=== PATIENT | female | born 1955 | race Caucasian/White ===

== ENCOUNTER 2020-11-07 07:14 | Inpatient (IN) | payer MEDICARE, MEDICAID ==
[~2020-11-07] VITALS: Ht 157.5 cm; Wt 85.0 kg
[2020-11-07] MEDS ORDERED: dexamethasone sod phosphate 10mg/ml inj IV STA (08:18)
[2020-11-07 09:57] LABS: BASOPHILS % (AUTO) 0.1 % (0-1); EOSINOPHILS % (AUTO) 0.4 % (0-6); HEMATOCRIT 43.6 % (35.0-45.0); HEMOGLOBIN 14.5 g/dl (12.0-16.0); LYMPHOCYTES # (AUTO) 0.7 X10'3 (1.1-4.8); LYMPHOCYTES % (AUTO) 15.5 % (21-51); MEAN CORPUSCULAR HEMOGLOBIN 27.8 PG (27.0-31.0); MEAN CORPUSCULAR HGB CONC 33.3 g/dL (33.0-36.5); MEAN CORPUSCULAR VOLUME 83.7 FL (78-98); MONOCYTES # (AUTO) 0.4 X10'3 (0-0.9); MONOCYTES % (AUTO) 7.9 % (2-12); NEUTROPHILS # (AUTO) 3.5 X10'3 (1.8-7.7); NEUTROPHILS % (AUTO) 76.1 % (42-75); PLATELET COUNT 252 X10'3 (140-440); RED BLOOD COUNT 5.21 X10'6 (4.20-5.60); RED CELL DISTRIBUTION WIDTH 15.2 % (11.5-14.5); WHITE BLOOD COUNT 4.7 X10'3 (4.5-11.0)
[2020-11-07 10:05] LABS: ALANINE AMINOTRANSFERASE 38 U/L (12-78); ALBUMIN 2.6 G/DL (3.4-5.0); ALBUMIN/GLOBULIN RATIO 0.5 (1.1-1.5); ALKALINE PHOSPHATASE 103 IU/L (46-116); ANION GAP 10 (8-16); ASPARTATE AMINO TRANSFERASE 45 U/L (10-37); BILIRUBIN,TOTAL 0.6 MG/DL (0.1-1.0); BLOOD UREA NITROGEN 14 MG/DL (7-18); BUN/CREATININE RATIO 20.6 (6.6-38.0); CALCIUM 8.7 MG/DL (8.5-10.1); CHLORIDE 103 MMOL/L (99-107); CREATININE 0.68 MG/DL (0.40-0.90); GLUCOSE 181 MG/DL (70-104); POTASSIUM 4.1 MMOL/L (3.5-5.1); SODIUM 140 MMOL/L (135-145); TOTAL CARBON DIOXIDE 26.7 MMOL/L (24-32); TOTAL PROTEIN 7.7 G/DL (6.4-8.2); eGFR 86 ML/MIN
[2020-11-07 10:14] LABS: C-REACTIVE PROTEIN 12.36 MG/DL (0.0-0.5)
[2020-11-07] MEDS ORDERED: ondansetron/PF 4mg/2ml inj IV PRN (12:05)
[2020-11-07] MEDS ORDERED: magnesium 4gm in 100ml NS 100 ML IV PRN (12:05)
[2020-11-07] MEDS ORDERED: HYDROcodone/acetaminophen 5mg/325mg tablet PO PRN (12:05)
[2020-11-07] MEDS ORDERED: magnesium 2GM in 50ml NS 50 ML IV PRN (12:05)
[2020-11-07] MEDS ORDERED: MESSAGE TO PHARMACY PO ONE (12:05)
[2020-11-07] MEDS ORDERED: glucagon, human recombinant 1mg kit SUBCUT PRN (12:05)
[2020-11-07] MEDS ORDERED: potassium Cl 40MEQ/1/2NS 520ml 520 ML IV PRN ×2 (12:05)
[2020-11-07] MEDS ORDERED: dextrose ORAL solution 15 GM/59 ML bottle PO PRN ×2 (12:05)
[2020-11-07] MEDS ORDERED: morphine 2 MG/ML inj. syringe IV PRN (12:05)
[2020-11-07] MEDS ORDERED: magnesium Cl slow-release 64mg tablet PO PRN (12:05)
[2020-11-07] MEDS ORDERED: mag hydrox/Alum hydrox/simeth 30ml oral suspension PO PRN (12:05)
[2020-11-07] MEDS ORDERED: potassium Cl 20 mEq SR tablet PO PRN ×2 (12:05)
[2020-11-07] MEDS ORDERED: dextrose 50%-water 50ml dispensing syringe IV PRN ×2 (12:05)
[2020-11-07] MEDS ORDERED: acetaminophen 325mg tablet PO PRN (12:05)
--- NOTE | 2020-11-07 12:56 | NUR ---
Blood cultures drawn by rn labor and delivery.
[2020-11-07 13:22] LABS: HEMOGLOBIN A1C 7.9 % (4.5-6.2)
[2020-11-07] MEDS: CefTRIAXone 2gm/D5W 50ml BAG 50 ML IV SCH (14:27)
[2020-11-07 14:47] LABS: LACTATE DEHYDROGENASE 568 U/L (81-234)
--- NOTE | 2020-11-07 14:55 | NUR ---
PERICO DARBY ([facility]) [phone]
[2020-11-07] MEDS: lisinopril 20mg tablet PO SCH (15:09)
[2020-11-07 15:14] LABS: D-DIMER 0.83 MG/L FEU (0-0.50)
[2020-11-07] MEDS ORDERED: heparin, porcine 5000 units/ml vial SQ SCH (16:00)
[2020-11-07] MEDS ORDERED: dexamethasone 4mg/ml inj IV SCH (20:00)
[2020-11-07] MEDS: K and/or MAG REPLACEMENT MC SCH (20:00)
[2020-11-07] MEDS: dexamethasone 6 MG in NS 50ml IV soln IV SCH (20:23)
--- NOTE | 2020-11-07 20:27 | NUR ---
PT CONSUMED 31 G CARBS FOR DINNER
--- NOTE | 2020-11-07 21:02 | NUR ---
PHONED PHARMACY ABOUT LANTUS . PHARM STATED THAT IT WAS READY TO BE PICKED UP - THIS RECORDER TO PHARM TO GET LANTUS
[2020-11-07] MEDS: insulin Lispro (HumaLOG) vial - multi-dose SQ SCH (21:19)
[2020-11-07] MEDS: insulin glargine (Lantus) pen - multi-dose SQ SCH (21:28)
[2020-11-08] MEDS ORDERED: enoxaparin 60mg/0.6ml syringe SUBCUT ONE (01:50)
--- NOTE | 2020-11-08 03:26 | NUR ---
Tc perera in ED - 11/08/20 at 0327 by ISABELLA THALIA HOSPITALIST ABOUT BP AT 1791
--- NOTE | 2020-11-08 03:27 | NUR ---
PAGGED HOSPITALIST KATRINA ABOUT BP AT 179/ 92 . PT BP AT WAS 148/95 WILL CONTINUE TO MONITOR AND REASSESS.
[2020-11-08 04:04] LABS: BASOPHILS % (AUTO) 0.2 % (0-1); EOSINOPHILS % (AUTO) 0 % (0-6); HEMATOCRIT 45.6 % (35.0-45.0); HEMOGLOBIN 15.2 g/dl (12.0-16.0); LYMPHOCYTES % (AUTO) 22.2 % (21-51); MEAN CORPUSCULAR HEMOGLOBIN 27.8 PG (27.0-31.0); MEAN CORPUSCULAR HGB CONC 33.2 g/dL (33.0-36.5); MEAN CORPUSCULAR VOLUME 83.7 FL (78-98); MEAN PLATELET VOLUME 8.5 FL (7.4-10.4); MONOCYTES # (AUTO) 0.4 X10'3 (0-0.9); MONOCYTES % (AUTO) 9.4 % (2-12); NEUTROPHILS % (AUTO) 68.2 % (42-75); PLATELET COUNT 314 X10'3 (140-440); RED BLOOD COUNT 5.45 X10'6 (4.20-5.60); RED CELL DISTRIBUTION WIDTH 14.7 % (11.5-14.5); WHITE BLOOD COUNT 4.4 X10'3 (4.5-11.0)
[2020-11-08 04:05] LABS: CLARITY,URINE CLEAR (Clear); COLOR,URINE YELLOW (Yellow); GLUCOSE, URINE 500 mg/dl (Neg); KETONES,URINE 15 mg/dl (Neg); LEUKOCYTE ESTERASE ,URINE NEGATIVE (Neg); NITRITES, URINE NEGATIVE (Neg); OCCULT BLOOD,URINE NEGATIVE (Neg); PROTEIN,URINE >=300 mg/dl (Neg)
[2020-11-08 04:07] LABS: UA COLLECTION TYPE CLN CATCH MIDSTREAM
[2020-11-08 04:19] LABS: ALANINE AMINOTRANSFERASE 40 U/L (12-78); ALBUMIN 2.5 G/DL (3.4-5.0); ALBUMIN/GLOBULIN RATIO 0.4 (1.1-1.5); ALKALINE PHOSPHATASE 111 IU/L (46-116); AMORPHOUS URATES 1+; ANION GAP 11 (8-16); ASPARTATE AMINO TRANSFERASE 34 U/L (10-37); BACTERIA,URINE NONE SEEN /HPF (Neg); BILIRUBIN,TOTAL 0.5 MG/DL (0.1-1.0); BLOOD UREA NITROGEN 24 MG/DL (7-18); BUN/CREATININE RATIO 28.6 (6.6-38.0); CHLORIDE 105 MMOL/L (99-107); CHOL/HDL RATIO 5.3 (0.00-4.99); CHOLESTEROL 244 MG/DL (0-200); CREATININE 0.84 MG/DL (0.40-0.90); GLUCOSE 216 MG/DL (70-104); HDL CHOLESTEROL 46 MG/DL (35-60); LDL CHOLESTEROL 165 MG/DL (50-100); MAGNESIUM 2.5 MG/DL (1.5-2.4); MUCUS STRANDS NONE SEEN /LPF (Neg); POTASSIUM 4.3 MMOL/L (3.5-5.1); RBC,URINE 0-2 /HPF (0-2); SODIUM 142 MMOL/L (135-145); SQUAMOUS EPITHELIAL CELL,UR MODERATE /LPF (FEW); TOTAL CARBON DIOXIDE 26.1 MMOL/L (24-32); TOTAL PROTEIN 8.1 G/DL (6.4-8.2); TRIGLYCERIDES 166 MG/DL (20-135); WBC,URINE 0-4 /HPF (0-4); eGFR 68 ML/MIN
[2020-11-08] MEDS: enoxaparin 60mg/0.6ml syringe SUBCUT SCH ×2 (04:43→15:12)
[2020-11-08] MEDS ORDERED: amLODIPine 5mg tablet PO SCH (08:00)
[2020-11-08] MEDS ORDERED: enoxaparin 100mg/ml syringe SUBCUT ONE (08:00)
[2020-11-08] MEDS: K and/or MAG REPLACEMENT MC SCH ×2 (08:00→20:00)
[2020-11-08] MEDS: lisinopril 20mg tablet PO SCH (11:08)
[2020-11-08] MEDS: dexamethasone 6 MG in NS 50ml IV soln IV SCH ×2 (11:08→20:13)
[2020-11-08] MEDS: CefTRIAXone 2gm/D5W 50ml BAG 50 ML IV SCH (11:09)
[2020-11-08] MEDS: insulin Lispro (HumaLOG) vial - multi-dose SQ SCH ×2 (11:19→20:19)
[2020-11-08] MEDS ORDERED: REMDESIVIR INJ 200 MG in normal saline 100ml IV soln 60 ML IV ONE (14:30)
[2020-11-08] MEDS: acetaminophen 325mg tablet PO PRN (14:44)
[2020-11-08] MEDS ORDERED: amLODIPine 5mg tablet PO ONE (19:15)
[2020-11-08] MEDS: insulin glargine (Lantus) pen - multi-dose SQ SCH (20:21)
[2020-11-09] MEDS: K and/or MAG REPLACEMENT MC SCH ×2 (07:42→19:49)
[2020-11-09] MEDS: amLODIPine 5mg tablet PO SCH (08:00)
[2020-11-09] MEDS: atorvastatin 20mg tablet PO SCH (08:48)
[2020-11-09] MEDS: lisinopril 20mg tablet PO SCH (08:49)
[2020-11-09] MEDS: dexamethasone 6 MG in NS 50ml IV soln IV SCH ×2 (08:49→19:55)
[2020-11-09] MEDS: CefTRIAXone 2gm/D5W 50ml BAG 50 ML IV SCH (09:28)
[2020-11-09] MEDS: REMDESIVIR INJ 100 MG in normal saline 100ml IV soln 80 ML IV SCH (09:54)
[2020-11-09 10:04] LABS: BASOPHILS % (AUTO) 0.1 % (0-1); EOSINOPHILS % (AUTO) 0 % (0-6); LYMPHOCYTES # (AUTO) 1.4 X10'3 (1.1-4.8); LYMPHOCYTES % (AUTO) 16.3 % (21-51); MEAN CORPUSCULAR HEMOGLOBIN 27.9 PG (27.0-31.0); MEAN CORPUSCULAR HGB CONC 33.2 g/dL (33.0-36.5); MEAN CORPUSCULAR VOLUME 83.9 FL (78-98); MONOCYTES # (AUTO) 0.6 X10'3 (0-0.9); MONOCYTES % (AUTO) 7.2 % (2-12); NEUTROPHILS # (AUTO) 6.7 X10'3 (1.8-7.7); NEUTROPHILS % (AUTO) 76.4 % (42-75); PLATELET COUNT 311 X10'3 (140-440); RED BLOOD COUNT 5.01 X10'6 (4.20-5.60); RED CELL DISTRIBUTION WIDTH 14.5 % (11.5-14.5); WHITE BLOOD COUNT 8.7 X10'3 (4.5-11.0)
[2020-11-09 10:15] LABS: D-DIMER 0.45 MG/L FEU (0-0.50)
[2020-11-09 10:26] LABS: ALANINE AMINOTRANSFERASE 48 U/L (12-78); ALBUMIN 2.4 G/DL (3.4-5.0); ALBUMIN/GLOBULIN RATIO 0.5 (1.1-1.5); ALKALINE PHOSPHATASE 93 IU/L (46-116); ANION GAP 12 (8-16); ASPARTATE AMINO TRANSFERASE 35 U/L (10-37); BILIRUBIN,TOTAL 0.4 MG/DL (0.1-1.0); BLOOD UREA NITROGEN 26 MG/DL (7-18); BUN/CREATININE RATIO 34.7 (6.6-38.0); C-REACTIVE PROTEIN 2.28 MG/DL (0.0-0.5); CALCIUM 8.7 MG/DL (8.5-10.1); CHLORIDE 106 MMOL/L (99-107); CREATININE 0.75 MG/DL (0.40-0.90); GLUCOSE 248 MG/DL (70-104); MAGNESIUM 2.2 MG/DL (1.5-2.4); SODIUM 142 MMOL/L (135-145); TOTAL CARBON DIOXIDE 23.7 MMOL/L (24-32); TOTAL PROTEIN 7.2 G/DL (6.4-8.2); eGFR 77 ML/MIN
[2020-11-09 11:00] LABS: LACTATE DEHYDROGENASE 341 U/L (81-234)
[2020-11-09] MEDS: enoxaparin 60mg/0.6ml syringe SUBCUT SCH ×2 (11:18→21:34)
[2020-11-09] MEDS: insulin Lispro (HumaLOG) vial - multi-dose SQ SCH ×2 (14:04→19:52)
[2020-11-09] MEDS ORDERED: SIMV-45 PO (16:09)
[2020-11-09] MEDS ORDERED: BENA1TAB19 PO (16:09)
[2020-11-09] MEDS ORDERED: AMLO10TA13 PO (16:09)
--- NOTE | 2020-11-09 16:17 | NUR ---
received report from sean morrow in er
--- NOTE | 2020-11-09 18:26 | NUR ---
GAVE REPORT TO REINA WINSTON
--- NOTE | 2020-11-09 18:38 | NUR ---
Patient in room ORTHO 4023. I have received report from Archana HUANG and had the opportunity to ask questions and assume patient care. Addendum: 11/09/20 at 1838 by Becky Cano RN Received report from Sonia HUANG
[2020-11-09] MEDS: lactobacillus rhamnosus 10,000 MMU CELLS/CAPSULE PO SCH (19:55)
[2020-11-09 20:00] VITALS: BP 150/72
[2020-11-09] MEDS: insulin glargine (Lantus) pen - multi-dose SQ SCH (21:36)
[2020-11-09 22:00] VITALS: BP 158/82
--- NOTE | 2020-11-10 00:22 | NUR ---
Problems reprioritized. Patient report given, questions answered & plan of care reviewed with Nicky HUANG.
--- NOTE | 2020-11-10 00:30 | NUR ---
Assumed care of pt at this time report from Becky HUANG.
[2020-11-10 02:00] VITALS: BP 154/86
--- NOTE | 2020-11-10 06:20 | NUR ---
Report to Lakisha Christianson.
[2020-11-10 06:31] VITALS: BP 154/84
--- NOTE | 2020-11-10 06:31 | NUR ---
Patient in room ORTHO 4023. I have received report from Nicky HUANG and had the opportunity to ask questions and assume patient care.
[2020-11-10 07:57] LABS: BASOPHILS % (AUTO) 0.1 % (0-1); EOSINOPHILS % (AUTO) 0 % (0-6); HEMATOCRIT 43.3 % (35.0-45.0); HEMOGLOBIN 14.3 g/dl (12.0-16.0); LYMPHOCYTES # (AUTO) 1.5 X10'3 (1.1-4.8); LYMPHOCYTES % (AUTO) 16.8 % (21-51); MEAN CORPUSCULAR HEMOGLOBIN 27.6 PG (27.0-31.0); MEAN CORPUSCULAR VOLUME 83.5 FL (78-98); MEAN PLATELET VOLUME 8.3 FL (7.4-10.4); MONOCYTES # (AUTO) 0.7 X10'3 (0-0.9); MONOCYTES % (AUTO) 7.3 % (2-12); NEUTROPHILS # (AUTO) 6.9 X10'3 (1.8-7.7); NEUTROPHILS % (AUTO) 75.8 % (42-75); PLATELET COUNT 380 X10'3 (140-440); RED BLOOD COUNT 5.18 X10'6 (4.20-5.60); RED CELL DISTRIBUTION WIDTH 14.9 % (11.5-14.5); WHITE BLOOD COUNT 9.1 X10'3 (4.5-11.0)
[2020-11-10] MEDS: K and/or MAG REPLACEMENT MC SCH ×2 (08:00→19:17)
[2020-11-10] MEDS: dexamethasone 6 MG in NS 50ml IV soln IV SCH ×2 (08:02→19:06)
[2020-11-10] MEDS: lisinopril 20mg tablet PO SCH (08:03)
[2020-11-10] MEDS: REMDESIVIR INJ 100 MG in normal saline 100ml IV soln 80 ML IV SCH (08:03)
[2020-11-10] MEDS: atorvastatin 20mg tablet PO SCH (08:03)
[2020-11-10] MEDS: CefTRIAXone 2gm/D5W 50ml BAG 50 ML IV SCH (08:03)
[2020-11-10] MEDS: amLODIPine 5mg tablet PO SCH (08:04)
[2020-11-10] MEDS: lactobacillus rhamnosus 10,000 MMU CELLS/CAPSULE PO SCH ×2 (08:04→19:06)
[2020-11-10 08:17] LABS: ALANINE AMINOTRANSFERASE 50 U/L (12-78); ALBUMIN 2.6 G/DL (3.4-5.0); ALBUMIN/GLOBULIN RATIO 0.6 (1.1-1.5); ALKALINE PHOSPHATASE 88 IU/L (46-116); ANION GAP 12 (8-16); ASPARTATE AMINO TRANSFERASE 24 U/L (10-37); BILIRUBIN,TOTAL 0.5 MG/DL (0.1-1.0); BLOOD UREA NITROGEN 30 MG/DL (7-18); BUN/CREATININE RATIO 37.5 (6.6-38.0); C-REACTIVE PROTEIN 1.11 MG/DL (0.0-0.5); CALCIUM 8.7 MG/DL (8.5-10.1); CHLORIDE 107 MMOL/L (99-107); GLUCOSE 190 MG/DL (70-104); LACTATE DEHYDROGENASE 325 U/L (81-234); MAGNESIUM 2.4 MG/DL (1.5-2.4); POTASSIUM 4.5 MMOL/L (3.5-5.1); SODIUM 142 MMOL/L (135-145); TOTAL CARBON DIOXIDE 23.5 MMOL/L (24-32); eGFR 72 ML/MIN
[2020-11-10 08:30] LABS: D-DIMER 0.32 MG/L FEU (0-0.50)
--- NOTE | 2020-11-10 09:08 | NUR ---
Pt with T2DM, current A1c is 7.9%. Pt admit for acute respiratory failure secondary COVID-19 PNA. Pt would benefit from DM education once stable. Will continue to follow. Addendum: 11/10/20 at [address] Amended: Links added.
[2020-11-10] MEDS: insulin Lispro (HumaLOG) vial - multi-dose SQ SCH ×3 (09:29→18:59)
[2020-11-10 11:36] VITALS: BP 130/70
[2020-11-10] MEDS: enoxaparin 60mg/0.6ml syringe SUBCUT SCH ×2 (11:41→22:09)
--- NOTE | 2020-11-10 15:46 | NUR ---
PAGER ID: [phone] MESSAGE: [id number], Fiorella, Blood pressure os 170/77 pulse of 74. got lisinopril and Norvasc this AM, has no PRNs. Lakisha [phone]
[2020-11-10 15:49] VITALS: BP 170/77
--- NOTE | 2020-11-10 17:48 | NUR ---
Per MD patient does not need any more antihypertensive medications at this time.
--- NOTE | 2020-11-10 18:29 | NUR ---
Problems reprioritized. Patient report given, questions answered & plan of care reviewed with Jacquie HUANG and Tammy HUANG.
[2020-11-10 18:32] VITALS: BP 155/81
[2020-11-10 22:00] VITALS: BP 140/75
[2020-11-10] MEDS: acetaminophen 325mg tablet PO PRN (22:08)
[2020-11-10] MEDS: insulin glargine (Lantus) pen - multi-dose SQ SCH (22:15)
--- NOTE | 2020-11-10 23:00 | NUR ---
pt up to BR with 1 person assist. c/o headache - tylenol helped.
[2020-11-11 01:26] VITALS: BP 144/74
--- NOTE | 2020-11-11 06:13 | NUR ---
Problems reprioritized. Patient report given, questions answered & plan of care reviewed with REINA Banuelos.
--- NOTE | 2020-11-11 06:19 | NUR ---
Patient in room ORTHO 4023. I have received report from Tammy HUANG and Jacquie HUANG and had the opportunity to ask questions and assume patient care.
[2020-11-11 06:21] VITALS: BP 141/65
[2020-11-11] MEDS: REMDESIVIR INJ 100 MG in normal saline 100ml IV soln 80 ML IV SCH (08:00)
[2020-11-11] MEDS: lactobacillus rhamnosus 10,000 MMU CELLS/CAPSULE PO SCH ×2 (08:00→20:42)
[2020-11-11] MEDS: K and/or MAG REPLACEMENT MC SCH ×2 (08:00→20:00)
[2020-11-11] MEDS: atorvastatin 20mg tablet PO SCH (08:00)
[2020-11-11] MEDS: dexamethasone 6 MG in NS 50ml IV soln IV SCH ×2 (08:01→20:42)
[2020-11-11] MEDS: amLODIPine 5mg tablet PO SCH (08:01)
[2020-11-11] MEDS: lisinopril 20mg tablet PO SCH (08:01)
[2020-11-11 08:28] LABS: BASOPHILS % (AUTO) 0.4 % (0-1); EOSINOPHILS % (AUTO) 0 % (0-6); HEMATOCRIT 44.8 % (35.0-45.0); HEMOGLOBIN 14.7 g/dl (12.0-16.0); LYMPHOCYTES # (AUTO) 2.1 X10'3 (1.1-4.8); LYMPHOCYTES % (AUTO) 18.2 % (21-51); MEAN CORPUSCULAR HEMOGLOBIN 27.5 PG (27.0-31.0); MEAN CORPUSCULAR HGB CONC 32.9 g/dL (33.0-36.5); MEAN CORPUSCULAR VOLUME 83.7 FL (78-98); MEAN PLATELET VOLUME 8.4 FL (7.4-10.4); MONOCYTES # (AUTO) 0.7 X10'3 (0-0.9); MONOCYTES % (AUTO) 6.3 % (2-12); NEUTROPHILS # (AUTO) 8.7 X10'3 (1.8-7.7); NEUTROPHILS % (AUTO) 75.1 % (42-75); PLATELET COUNT 402 X10'3 (140-440); RED BLOOD COUNT 5.35 X10'6 (4.20-5.60); RED CELL DISTRIBUTION WIDTH 14.9 % (11.5-14.5); WHITE BLOOD COUNT 11.6 X10'3 (4.5-11.0)
[2020-11-11 08:51] LABS: ALANINE AMINOTRANSFERASE 83 U/L (12-78); ALBUMIN 2.7 G/DL (3.4-5.0); ALBUMIN/GLOBULIN RATIO 0.6 (1.1-1.5); ALKALINE PHOSPHATASE 84 IU/L (46-116); ANION GAP 11 (8-16); ASPARTATE AMINO TRANSFERASE 52 U/L (10-37); BILIRUBIN,TOTAL 0.4 MG/DL (0.1-1.0); BLOOD UREA NITROGEN 32 MG/DL (7-18); BUN/CREATININE RATIO 45.1 (6.6-38.0); C-REACTIVE PROTEIN 0.59 MG/DL (0.0-0.5); CALCIUM 8.6 MG/DL (8.5-10.1); CHLORIDE 105 MMOL/L (99-107); CREATININE 0.71 MG/DL (0.40-0.90); GLUCOSE 94 MG/DL (70-104); LACTATE DEHYDROGENASE 333 U/L (81-234); MAGNESIUM 2.4 MG/DL (1.5-2.4); POTASSIUM 4.2 MMOL/L (3.5-5.1); SODIUM 141 MMOL/L (135-145); TOTAL CARBON DIOXIDE 24.9 MMOL/L (24-32); TOTAL PROTEIN 6.9 G/DL (6.4-8.2); eGFR 82 ML/MIN
[2020-11-11 08:54] LABS: D-DIMER 0.37 MG/L FEU (0-0.50)
[2020-11-11] MEDS: insulin Lispro (HumaLOG) vial - multi-dose SQ SCH ×3 (09:15→18:59)
[2020-11-11] MEDS: enoxaparin 60mg/0.6ml syringe SUBCUT SCH ×2 (10:51→23:53)
[2020-11-11 12:04] VITALS: BP 133/64
--- NOTE | 2020-11-11 12:23 | NUR ---
Initial: Initial: Pt admitted w/ Covid and increasing SOB/weakness per EMR. Pt able to eat well, 100% of all meals on CCHO diet meeting needs. No N/V/D noted, LBM 11/09. No nutritional intervention implemented at this time, will continue to monitor. Recs: 1. Continue CCHO diet as tolerated 2. Bowel care per rx 3. Weekly wts Addendum: 11/11/20 at [address] Amended: Links added.
[2020-11-11 14:34] VITALS: BP 147/77
[2020-11-11 18:00] VITALS: BP 131/76
--- NOTE | 2020-11-11 18:36 | NUR ---
Problems reprioritized. Patient report given, questions answered & plan of care reviewed with Preeti HUANG.
--- NOTE | 2020-11-11 18:41 | NUR ---
Patient in room ORTHO 4023. I have received report from REINA Banuelos and had the opportunity to ask questions and assume patient care.
[2020-11-11 22:00] VITALS: BP 141/81
[2020-11-11] MEDS: insulin glargine (Lantus) pen - multi-dose SQ SCH (22:11)
[2020-11-12 02:00] VITALS: BP 143/80
--- NOTE | 2020-11-12 06:31 | NUR ---
Problems reprioritized. Patient report given, questions answered & plan of care reviewed with REINA Dobbins.
[2020-11-12 06:57] VITALS: BP 153/82
[2020-11-12] MEDS: K and/or MAG REPLACEMENT MC SCH (08:00)
[2020-11-12 08:37] LABS: BASOPHILS % (AUTO) 0.2 % (0-1); EOSINOPHILS % (AUTO) 0.1 % (0-6); HEMATOCRIT 45.7 % (35.0-45.0); HEMOGLOBIN 15.2 g/dl (12.0-16.0); LYMPHOCYTES # (AUTO) 2.7 X10'3 (1.1-4.8); MEAN CORPUSCULAR HEMOGLOBIN 27.4 PG (27.0-31.0); MEAN CORPUSCULAR HGB CONC 33.1 g/dL (33.0-36.5); MEAN CORPUSCULAR VOLUME 82.8 FL (78-98); MEAN PLATELET VOLUME 8.1 FL (7.4-10.4); MONOCYTES # (AUTO) 0.8 X10'3 (0-0.9); MONOCYTES % (AUTO) 5.7 % (2-12); NEUTROPHILS # (AUTO) 10.6 X10'3 (1.8-7.7); PLATELET COUNT 448 X10'3 (140-440); RED BLOOD COUNT 5.52 X10'6 (4.20-5.60); WHITE BLOOD COUNT 14.1 X10'3 (4.5-11.0)
[2020-11-12] MEDS: insulin Lispro (HumaLOG) vial - multi-dose SQ SCH (08:52)
[2020-11-12] MEDS: dexamethasone 6 MG in NS 50ml IV soln IV SCH (08:57)
[2020-11-12] MEDS: atorvastatin 20mg tablet PO SCH (08:59)
[2020-11-12] MEDS: lisinopril 20mg tablet PO SCH (09:01)
[2020-11-12] MEDS: amLODIPine 5mg tablet PO SCH (09:01)
[2020-11-12] MEDS: lactobacillus rhamnosus 10,000 MMU CELLS/CAPSULE PO SCH (09:02)
[2020-11-12 09:08] LABS: ALANINE AMINOTRANSFERASE 100 U/L (12-78); ALBUMIN 2.8 G/DL (3.4-5.0); ALBUMIN/GLOBULIN RATIO 0.7 (1.1-1.5); ALKALINE PHOSPHATASE 81 IU/L (46-116); ANION GAP 8 (8-16); ASPARTATE AMINO TRANSFERASE 44 U/L (10-37); BILIRUBIN,TOTAL 0.5 MG/DL (0.1-1.0); BLOOD UREA NITROGEN 30 MG/DL (7-18); BUN/CREATININE RATIO 43.5 (6.6-38.0); C-REACTIVE PROTEIN 0.29 MG/DL (0.0-0.5); CALCIUM 8.6 MG/DL (8.5-10.1); CHLORIDE 107 MMOL/L (99-107); CREATININE 0.69 MG/DL (0.40-0.90); GLUCOSE 88 MG/DL (70-104); LACTATE DEHYDROGENASE 291 U/L (81-234); MAGNESIUM 2.4 MG/DL (1.5-2.4); POTASSIUM 4.2 MMOL/L (3.5-5.1); SODIUM 138 MMOL/L (135-145); TOTAL CARBON DIOXIDE 23.4 MMOL/L (24-32); TOTAL PROTEIN 6.8 G/DL (6.4-8.2); eGFR 85 ML/MIN
[2020-11-12] MEDS: REMDESIVIR INJ 100 MG in normal saline 100ml IV soln 80 ML IV SCH (09:48)
[2020-11-12 10:00] VITALS: BP 139/71
[2020-11-12] MEDS: enoxaparin 60mg/0.6ml syringe SUBCUT SCH (11:15)
--- NOTE | 2020-11-12 13:09 | NUR ---
O2 Sat at rest on room air:87% If below 89%: Recovery O2 Sat at rest on 2.5_LPM:__93_%:_95% via_nasal cannula_(mask/nasal cannula, etc..) No further documentation is necessary. If O2 Sat did not drop below 89% on room air,ambulate patient on room air. O2 Sat while ambulating on room air:___% Recovery O2 Sat while ambulating on ___LPM:___% No further documentation is necessary. If patient does not drop below 89% while ambulating, he/she does not qualify for home O2.
[2020-11-12 14:00] VITALS: BP 129/69
[2020-11-12] MEDS ORDERED: ALBU8.5H17 INH (14:08)
[2020-11-12] MEDS ORDERED: ATOR20TA66 PO (14:08)
[2020-11-12] MEDS ORDERED: LACT1CAP26 PO (14:08)
[2020-11-12] MEDS ORDERED: DEXA6TAB PO (14:08)
[2020-11-12] MEDS ORDERED: BENZ-16 PO (14:08)
[2020-11-12] MEDS ORDERED: METF-950 PO (14:08)
[2020-11-12] MEDS ORDERED: LINA5TAB4 PO (14:08)
[2020-11-12] MEDS ORDERED: ASPI-611 PO (14:13)
--- NOTE | 2020-11-12 14:35 | NUR ---
DM Consult: Pt A1C 7.9 currently w/ JERONIMO JACOBSEN. DM ed deferred at this time until more appropriate. Addendum: 11/12/20 at [address] Amended: Links added.
--- NOTE | 2020-11-12 17:30 | NUR ---
Patient discharged home with family member. Daughter and patient spoken to in depth about plan for discharge. They will sweet pickled fruit maker medications at [facility] [place] and transport oxygen delivered to room. Pt shown how to use and states understanding. Pt appropriate and stable for discharge, ambulatory. IV removed, tele box dc'd. all belongings taken from room. Pt understands dm and dm meds perscribed and follow up with pcp for dm regimine.
== END 2020-11-12 17:45 | disposition home or self-care (01) | DRG 177 ==
LOC: EDSEX 07:15 → ER 07:15 → ED HOLD 12:07 → EDBEDREQ 11-08 02:00 → ORTHO 4S 11-09 16:57
PROVIDERS: ADMIT Internal Medicine; ATTEND Internal Medicine
PROC: XW033E5 Introduction of Remdesivir Anti-infective into Peripheral Vein, Percutaneous Approach, New Technology Group 5 (ICD-10-PCS; principal; 2020-11-08)
DX: U07.1 COVID-19 (principal); J12.82 Pneumonia due to coronavirus disease 2019; J96.01 Acute respiratory failure with hypoxia; I10 Essential (primary) hypertension; E78.5 Hyperlipidemia, unspecified; E11.65 Type 2 diabetes mellitus with hyperglycemia; E78.00 Pure hypercholesterolemia, unspecified
CPT/HCPCS: 36415; 71045; 80053; 80061; 81001; 82948; 83036; 83605; 83615; 83735; 83880; 84145; 84484; 85025; 85379; 86140; 87040; 87081; 87635; 93005; 96374; 97110; 97161; 97530; 99285; C9803; G0378; J0696; J1100; J1644; J1650; J1815

== ENCOUNTER 2024-12-23 15:18 | Inpatient (IN) | payer MEDICARE, MEDICAID ==
[~2024-12-23] VITALS: Ht 147.3 cm; Wt 74.5 kg
[~2024-12-23 15:18] MED LIST: ALBU8.5H17 INH; AMLO10TA13 PO; ATOR20TA66 PO; BENA1TAB19 PO; BENZ-16 PO; DEXA6TAB PO; LACT1CAP26 PO; LINA5TAB4 PO
[2024-12-23 15:55] LABS: MEAN PLATELET VOLUME 8.4 FL (7.4-10.4); RED CELL DISTRIBUTION WIDTH 15.2 % (11.5-14.5)
--- NOTE | 2024-12-23 16:03 | ELECTROCARDIOGRAPH REPORT ---
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 Raj Holt Measurements Intervals [place] Rate: 74 P: 57 ID: [id number] QRS: 68 QRSD: 100 T: 47 QT: 442 QTc: 491 Interpretive Statements Sinus rhythm Probable left atrial enlargement Borderline prolonged QT interval Electronically Signed On 12-26-2024 7:41:[address] Raj Holt Please click the below link to view image of tracing.
[2024-12-23 16:05] LABS: CREATININE 1.02 MG/DL (0.40-0.90); TOTAL CARBON DIOXIDE 27.3 MMOL/L (24-32); eCRCL 33 ML/MIN; eGFR 53 ML/MIN
--- NOTE | 2024-12-23 16:05 | Physician Documentation ---
History of Present Illness General Chief Complaint: Stroke Alert Stated Complaint: FACIAL DROOPING X 3 DAYS Time Seen by MD: 15:44 OK to notify your PCP?: No Source: patient, family, RN notes reviewed Mode of Arrival: POV Exam Limitations: no limitations History of Present Illness Initial Comments 69-year-old female, with a history of hypertension but no history of stroke, presents with the family who are translating with concerns of left-sided facial droop, left arm and leg weakness, and slurred speech, which began a proximally 1500 yesterday. Yesterday patient began having the aforementioned symptoms and called family around 2100 reporting that she was not feeling well. Family noted she had slurred speech when talking to her. Family reports that there was a family gathering a few days ago and several members of the family became ill. Medication Reconciliation Allergies: Coded Allergies: crab (Verified Allergy, Unknown, 12/23/24) Scheduled Amlodipine Besylate (Amlodipine Besylate), 1 TAB PO DAILY, (Reported) Atorvastatin Calcium (Atorvastatin Calcium), 40 MG PO DAILY Benazepril/Hydrochlorothiazide (Benazepril-Hctz 20-25 mg Tab), 1 TAB PO DAILY, (Reported) Empagliflozin (Jardiance), 1 TAB PO DAILY, (Reported) Linagliptin (Tradjenta), 1 TAB PO DAILY Metformin Hcl* (Metformin ER*), 1 TAB PO Q12H, (Reported) Discontinued Medications Albuterol Sulfate (Proair Hfa), 2 PUFFS INH Q4HPRN PRN for wheezing Discontinued Reason: patient no longer taking Benzonatate (Tessalon Perle), 1 CAP PO Q8H Discontinued Reason: patient no longer taking Dexamethasone (Dexamethasone), 1 TAB PO DAILY Discontinued Reason: patient no longer taking Lactobacillus Rhamnosus (Culturelle), 10,000 MMU PO BID Discontinued Reason: patient no longer taking Past Medical History Past Medical History: High Cholesterol, Hypertension, Diabetes Past Surgical History: no surgical history Alcohol Use: None Drug Use: none Lives In: Home Review of Systems All Other Systems at this time: Reviewed and Negative ROS As stated above in the HPI, otherwise all systems are reviewed and negative. Physical Exam Physical Exam Vital Signs: RN Vital Signs have been reviewed: Yes, Temperature: 97.6, Source: Temporal, Heart Rate: 75, Respiratory Rate: 18, BP: 206/104, Pulse Oximetry: 97, Weight: 74.500 Pulse Oximetry Reflects: adequate oxygenation Physical Exam VITALS: Reviewed and as above. GENERAL: Alert, no apparent distress. HEENT: Normocephalic, atraumatic, PERRL, EOMI, dry mucosa RESPIRATORY: Lungs clear, normal breath sounds, no respiratory distress. CHEST: No accessory muscle use, no retractions CV: Regular rate, rhythm, no edema, no murmur, No: JVD GI: Soft, non-tender, bowels sounds present, no rebound, guarding, or rigidity MUSCULOSKELETAL No deformities, no edema SKIN: Warm and dry, no rash NEURO: Oriented x4. Slight left facial droop, 4+/5 strength of left upper extremity. 5/5 strength of right upper extremity. 5/5 strength to bilateral lower extremities PSYCH: Normal mood and affect, no agitation Progress Progress Note 1652: Hospitalist paged. 1702: Case discussed with internal medicine resident, who agrees to evaluate the patient for admission. Results/Orders Reviewed/noted all lab results: Yes Results/Orders Orders - OHLMANUEL MON MD Cta Neck/Head (12/23/24 15:53) Page Hospitalist (12/23/24 16:52) Fill Out Med Reconciliation (12/23/24 16:52) Completed Orders - OHMANUEL PENALOZA MD Cta Neck/Head (12/23/24 15:53) Vital Signs 12/23/24 12/23/24 12/23/24 12/23/24 15:29 16:04 16:04 16:20 Temp 97.6 Pulse 75 66 67 Resp 18 18 18 18 B/P (MAP) 206/104 182/86 163/86 Pulse Ox 97 98 96 12/23/24 12/23/24 16:30 17:00 Pulse 68 65 Resp 6 14 B/P (MAP) 163/86 174/90 Pulse Ox 95 97 Laboratory Tests Test 12/23/24 15:36 12/23/24 15:41 Glucometer 243 H White Blood Count 4.9 Red Blood Count 5.65 H Hemoglobin 15.6 Hematocrit 46.4 H Mean Corpuscular Volume 82.3 Mean Corpuscular Hemoglobin 27.6 Mean Corpuscular Hemoglobin Concent 33.6 Red Cell Distribution Width 15.2 H Platelet Count 225 Mean Platelet Volume 8.4 Neutrophils (%) (Auto) 61.9 Lymphocytes (%) (Auto) 25.5 Monocytes (%) (Auto) 11.1 Eosinophils (%) (Auto) 0.7 Basophils (%) (Auto) 0.8 Neutrophils # (Auto) 3.0 Lymphocytes # (Auto) 1.3 Monocytes # (Auto) 0.5 Eosinophils # (Auto) 0.0 Basophils # (Auto) 0.0 CBC Comment Prothrombin Time 10.9 INR International Normalized Ratio 1.1 Activated Partial Thromboplast Time 33 H Coagulation Comments Sodium Level 138 Potassium Level 3.5 Chloride Level 103 Carbon Dioxide Level 27.3 Anion Gap 8 Blood Urea Nitrogen 16 Creatinine 1.02 H Estimated GFR/1.73 m2 53 BUN/Creatinine Ratio 15.7 Glucose Level 243 H Calcium Level 8.7 Albumin 3.6 Chemistry Comments EKG/XRAY/CT/US/VASC/MRI EKG : Additional Comment 1600: EKG interpreted by myself to show normal sinus rhythm at a rate of 74 beats per minute. Normal axis, no acute ST changes. Chest X-Ray : Additional Comments EXAM: DI CHEST,SINGLE VIEW HISTORY: Stroke Alert COMPARISON: CHEST,SINGLE VIEW on DOS: 11/07/20 TECHNIQUE: Portable supine AP view of the chest was performed. FINDINGS: No pneumothorax, consolidative infiltrates, or pulmonary edema. The heart is en larged. IMPRESSION: Cardiomegaly without evidence of acute intrathoracic process. Reviewed by myself. CT #1: Interpreted By: radiologist CT: head With Contrast?: No Impression EXAM: CT CT STROKE ALERT HISTORY: Stroke Alert COMPARISON: None TECHNIQUE: Noncontrast axial CT images of the head were performed. Sagittal and coronal reformatted images were obtained. This CT exam was performed using 1 or more of the following dose reduction techniques: Automated exposure control, adjustment of the mA and/or kv according to patient size, or the use of iterative reconstruction techniques. Radiation Dose: CTDI volume is 60.3 mGy. Dose-length product is 1164.37 mGy*cm FINDINGS: No intracranial hemorrhage, mass, midline shift, hydrocephalus, or evidence of acute large vessel infarct. There is abdc-rl-yekxltjq decreased attenuation in the periventricular white matter. There are old lacunar infarcts of the right basal ganglia and left caudate head. There are bilateral basal ganglia calcifications. The sella is partially empty. There are atherosclerotic calcifications of the cavernous ICAs and left terminal vertebral artery. There is mild mucosal thickening of the bilateral maxillary, left sphenoid, and bilateral ethmoid sinuses. The bilateral mastoid air cells and middle ear spaces are clear. No cranial fracture or scalp edema. IMPRESSION: 1. Chronic ischemic changes without evidence of acute intracranial process. 2. Mild paranasal sinus disease. Reviewed by myself, Dr. Longoria. CT #2: Interpreted By: radiologist CT: head (/neck) With Contrast?: Yes Impression EXAM: CT CTA NECK/HEAD HISTORY: cva COMPARISON: CT scan of the head from earlier same day. TECHNIQUE: High-resolution helical CT images of the head and neck were performed with 100 mL Omnipaque 350 IV contrast utilizing CTA protocol. Sagittal and coronal reformatted images and 3-D MIP reconstructions were obtained. This CT exam was performed using one or more of the following dose reduction techniques: Automated exposure control, adjustment of the mA and/or kV according to patient size, or use of iterative reconstruction technique. Radiation Dose: CT Dose: CTDI volume is 15.37 mGy. Dose-length product is 581.06 mGy*cm FINDINGS: [place] of [place]: No evidence of aneurysmal dilatation about the [place] of [place]. The bilateral ACAs, bilateral news production assistant, and left MCA are widely patent. There is 50% stenosis of the origins of the right MCA M2 branches (images 395- 403, series 4; images 29-30, series 603). There is origin of the left WASTE COLLECTION DRIVER. There are atherosclerotic calcifications of the cavernous ICAs. The cavernous and petrous ICAs are patent. Right carotid system: No significant stenosis of the CCA, ICA, or ECA origin. There are atherosclerotic calcifications of the carotid bulb. Left carotid system: No significant stenosis of the CCA, ICA, or ECA origin. There are atherosclerotic calcifications of the carotid bulb. Vertebrobasilar: No high-grade stenoses of the bilateral vertebral arteries or basilar artery. There is mild irregular narrowing of the left terminal vertebral artery. Miscellaneous: The sella is empty. The central pulmonary arteries are ectatic, not fully imaged here. There are multiple dental caries. There is mucosal thickening of the bilateral maxillary, bilateral ethmoid and left sphenoid sinuses. There is hypertrophy of the palatine tonsils without significant airway narrowing or evidence of tonsillar abscess. There is moderate to advanced cervical degenerative disc disease with smpi-za-rblysseg spinal canal stenosis at every disc level C4-C7. There is straightening of normal cervical lordosis. There is significant neural foraminal stenosis at C4-C5 and C5-C6 bilaterally. IMPRESSION: 1. 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 No other significant stenosis about the hczvyl-np-Ifsgkl. 2. No aneurysmal dilatation about the [place] of [place]. 3. origin of the left WASTE COLLECTION DRIVER, which is a normal developmental vascular variant. 4. No significant stenosis of the bilateral cervical carotid arteries or vertebral arteries. 5. Empty sella. 6. Pulmonary arterial hypertension. 7. Multiple dental caries. Recommend outpatient dental consultation. 8. Mild paranasal sinus disease. 9. Cervical degenerative disc disease with significant neural foraminal stenosis bilaterally at C4-C5 and C5-C6, pvqe-ao-iwibppfp spinal canal stenosis at every disc level C4-C7. Recommend follow-up outpatient noncontrast MRI of the cervical spine for better characterization, especially the patient complains of upper extremity radicular symptoms. Medical Decision Making Additional information obtaine: old records (admitted in 2020 for covid pneumonia) Findings PATIENT IS A 69-YEAR-OLD FEMALE PRESENTED TO THE EMERGENCY ROOM A LEVEL TWO STROKE ALERT. The patient had some facial weakness with preserved strength to her forehead as well as some left upper extremity weakness the appears to has been new since yesterday. The patient's onset of symptoms appears to be about 24 hours prior to arrival in the emergency room she has a CT that did not show any acute CVA and she had a CTA which did not show any acute large vessel occlusion. Case was discussed with the Neurology. The patient will be admitted to the hospitalist the patient's chest x-ray was reviewed by myself it demonstrated some cardiomegaly normal-appearing lung vang and normal-appearing bony structures I interpreted the x-ray as cardiomegaly I have reviewed the radiologist's interpretation as well I have also interpreted the EKG. 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 Case was discussed at length with the family as well the patient was admitted to the hospital Differential Diagnosis Tripathi's palsy, CVA, neuropathy, Departure Time of Disposition: 16:52 Disposition: 09 ADMITTED INPATIENT Admitted to Inpatient Unit: yes, to hospitalist Impression: Primary Impression: CVA (cerebral vascular accident) Qualified Codes: I63.9 - Cerebral infarction, unspecified Condition: Fair Referrals: NO PRIMARY CARE PROVIDER (PCP) Signature Scribe Signature: Scribed for Manuel Longoria MD by Ángel Buchanan . 12/23/24 16:07 Attestation: The note accurately reflects work and decisions made by me.Manuel Longoria MD 12/24/24 06:42 MANUEL LONGORIA MD Dec 23, 2024 16:05 ÁNGEL MOSS Dec 23, 2024 16:12
[2024-12-23 16:06] LABS: APTT 33 SECONDS (22-32); INR 1.1 INR
--- NOTE | 2024-12-23 16:08 | RADIOLOGY REPORT ---
EXAM: CT CT STROKE ALERT HISTORY: Stroke Alert COMPARISON: None TECHNIQUE: Noncontrast axial CT images of the head were performed. Sagittal and coronal reformatted images were obtained. This CT exam was performed using 1 or more of the following dose reduction techniques: Automated exposure control, adjustment of the mA and/or kv according to patient size, or the use of iterative reconstruction techniques. Radiation Dose: CTDI volume is 60.3 mGy. Dose-length product is 1164.37 mGy*cm FINDINGS: No intracranial hemorrhage, mass, midline shift, hydrocephalus, or evidence of acute large vessel infarct. There is hjdr-ct-nwmoevvj decreased attenuation in the periventricular white matter. There are old lacunar infarcts of the right basal ganglia and left caudate head. There are bilateral basal ganglia calcifications. The sella is partially empty. There are atherosclerotic calcifications of the cavernous ICAs and left terminal vertebral artery. There is mild mucosal thickening of the bilateral maxillary, left sphenoid, and bilateral ethmoid sinuses. The bilateral mastoid air cells and middle ear spaces are clear. No cranial fracture or scalp edema. IMPRESSION: 1. Chronic ischemic changes without evidence of acute intracranial process. 2. Mild paranasal sinus disease.
--- NOTE | 2024-12-23 16:25 | RADIOLOGY REPORT ---
EXAM: DI CHEST,SINGLE VIEW HISTORY: Stroke Alert COMPARISON: CHEST,SINGLE VIEW on DOS: 11/07/20 TECHNIQUE: Portable supine AP view of the chest was performed. FINDINGS: No pneumothorax, consolidative infiltrates, or pulmonary edema. The heart is enlarged. IMPRESSION: Cardiomegaly without evidence of acute intrathoracic process.
--- NOTE | 2024-12-23 16:43 | [facility]SULT REPORT ---
[facility] Procedure Note [facility] Procedure Note Consult [facility] Note # Demographics Consult Type: Acute Stroke Level 2 (4.5-24 hrs) Patient Location: Emergency Room First Name: ANTONIETTA Last Name: MARTITA Date of : 1955 Age: 69 Gender: Female Facility: [facility] Time of Initial Page (): 12/23/2024 16:14 First Contact with Site (): 12/23/2024 16:15 # HPI History: 69 yo F who p/w facial weakness and possibly LUE weakness since yesterday at 3p. # Scores Time of exam and NIHSS (): 12/23/2024 16:36 Level of Consciousness 1a: [0] = Alert; keenly responsive LOC Questions 1b: [0] = Answers both questions correctly LOC Commands 1c: [0] = Performs both tasks correctly Best Gaze 2: [0] = Normal Visual 3: [0] = No visual loss Facial Palsy 4: [2] = Partial paralysis Motor Arm Left 5a: [1] = Drift Motor Arm Right 5b: [0] = No drift Motor Leg Left 6a: [0] = No drift Motor Leg Right 6b: [0] = No drift Limb Ataxia 7: [0] = Absent Sensory 8: [1] = Bmvf-zb-yvigpvoc sensory loss Best Language 9: [0] = No aphasia Dysarthria 10: [0] = Normal Extinction and Inattention 11: [0] = No abnormality NIHSS Total: 4 # PMH-FH-SH Past Medical History: - Diabetes - hypertension Medications: - diabetic medication - antihypertensive # Data Time Head CT personally read by me (): 12/23/2024 16:[address]: - no bleed - per radiologist read # Assessment Impression: - Ischemic Stroke (Subacute) # Plan Thrombolytic/Intervention: NOT IV Thrombolysis or IA Intervention candidate Thrombolytic Exclusion: > 4.5 hours Intraarterial Exclusion: - non-disabling - other no signs of LVO Target Blood Pressure: - SBP < 220 - DBP < 105 Labs: - lipid panel - hemoglobin A1c Imaging: (urgency: STAT): - CT Angiogram Head and CT Angiogram Neck AND call back with results if abnormal Diagnostic Test: - echo without bubble study Medication: - start statin with goal of LDL < 70 -ASA 325 mg x 1, then 81 mg daily -plavix 300 mg x 1, then 75 mg daily x 3 weeks Other: - If patient has any neurological deterioration please call me back immediately - LDL < 70 - I have discussed my recommendations with the referring provider Disposition: observation # Logistics Attestation of consult completion: The patient is located at: [facility]. Facility staff participated in the visit. I performed this telemedicine visit from my offsite office utilizing interactive 2 way audio and visual telecommunication technology at the request of the onsite emergency room provider. Consent: Verbal consent was obtained from the patient and/or family for this encounter. Total time spent in telemedicine encounter: I spent 20 minutes reviewing clinical data and/or imaging, obtaining history, examining the patient, communicating with the onsite care team, and in preparation of this report. # Demographics First Name: ANTONIETTA Last Name: MARTITA Facility: [facility] Neuro Consult Order placed for: Yes EDEN TURCIOS MD Dec 23, 2024 16:43
--- NOTE | 2024-12-23 16:47 | RADIOLOGY REPORT ---
EXAM: CT CTA NECK/HEAD HISTORY: cva COMPARISON: CT scan of the head from earlier same day. TECHNIQUE: High-resolution helical CT images of the head and neck were performed with 100 mL Omnipaque 350 IV contrast utilizing CTA protocol. Sagittal and coronal reformatted images and 3-D MIP reconstructions were obtained. This CT exam was performed using one or more of the following dose reduction techniques: Automated exposure control, adjustment of the mA and/or kV according to patient size, or use of iterative reconstruction technique. Radiation Dose: CT Dose: CTDI volume is 15.37 mGy. Dose-length product is 581.06 mGy*cm FINDINGS: [place]: No evidence of aneurysmal dilatation about the [place]. The bilateral ACAs, bilateral mill platform supervisor, and left MCA are widely patent. There is 50% stenosis of the origins of the right MCA M2 branches (images 395- 403, series 4; images 29-30, series 603). 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 There are atherosclerotic calcifications of the cavernous ICAs. The cavernous and petrous ICAs are patent. Right carotid system: No significant stenosis of the CCA, ICA, or ECA origin. There are atherosclerotic calcifications of the carotid bulb. Left carotid system: No significant stenosis of the CCA, ICA, or ECA origin. There are atherosclerotic calcifications of the carotid bulb. Vertebrobasilar: No high-grade stenoses of the bilateral vertebral arteries or basilar artery. There is mild irregular narrowing of the left terminal vertebral artery. Miscellaneous: The sella is empty. The central pulmonary arteries are ectatic, not fully imaged here. There are multiple dental caries. There is mucosal thickening of the bilateral maxillary, bilateral ethmoid and left sphenoid sinuses. There is hypertrophy of the palatine tonsils without significant airway narrowing or evidence of tonsillar abscess. There is moderate to advanced cervical degenerative disc disease with yyda-vv-yhxtisdl spinal canal stenosis at every disc level C4-C7. There is straightening of normal cervical lordosis. There is significant neural foraminal stenosis at C4-C5 and C5-C6 bilaterally. IMPRESSION: 1. 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 No other significant stenosis about the cdaamj-hl-Rfmidk. 2. No aneurysmal dilatation about the [place]. 3. 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 4. No significant stenosis of the bilateral cervical carotid arteries or vertebral arteries. 5. Empty sella. 6. Pulmonary arterial hypertension. 7. Multiple dental caries. Recommend outpatient dental consultation. 8. Mild paranasal sinus disease. 9. Cervical degenerative disc disease with significant neural foraminal stenosis bilaterally at C4-C5 and C5-C6, rkot-oy-wekitehv spinal canal stenosis at every disc level C4-C7. Recommend follow-up outpatient noncontrast MRI of the cervical spine for better characterization, especially the patient complains of upper extremity radicular symptoms.
[2024-12-23] MEDS ORDERED: magnesium sulf-water 2g/50mL 50 ML IV PRN (17:10)
[2024-12-23] MEDS ORDERED: potassium Cl 40MEQ/1/2NS 520ml 520 ML IV PRN (17:10)
[2024-12-23] MEDS ORDERED: magnesium Cl slow-release 64mg tablet PO PRN (17:10)
[2024-12-23] MEDS ORDERED: potassium Cl 20 mEq SR tablet PO PRN (17:10)
[2024-12-23] MEDS ORDERED: mag hydrox/Alum hydrox/simeth 30ml oral suspension PO PRN (17:10)
[2024-12-23] MEDS ORDERED: magnesium hydroxide 30ml (MOM) UD suspension PO PRN (17:10)
[2024-12-23] MEDS ORDERED: magnesium sulf-water 4G/100mL 100 ML IV PRN (17:10)
[2024-12-23] MEDS ORDERED: morphine 4 MG/ML inj SYRINge IV PRN ×2 (17:10)
[2024-12-23] MEDS ORDERED: ondansetron/PF 4mg/2ml inj IV PRN (17:10)
--- NOTE | 2024-12-23 17:50 | HISTORY AND PHYSICAL-Residence ---
History & Physical Providers to CC Resident Creating Document: NIGEL SANCHEZ, RES ~ History of Present Illness Primary Medical Doctor: carlos Reason for Admit\Complaint: Left facial droopiness, left arm weakness History of Present Illness 69-year-old female patient presented to the hospital with chief complaint of left facial droopiness and left arm weakness. The patient is Occitan speaking. The patient states that yesterday approximately 3:00 p.m. she experienced a severe headache scaled 10/10 in intensity, located behind her eyes, without radiation, described as a pressure type. As per patient this is the 1st time that she experienced symptoms like this. She was visiting her brother when these symptoms started. The patient took two tablets of Tylenol 500 mg in the morning and two tablets in the afternoon which improved with the pain but she reports that currently she is still having weakness of the left upper extremity and associated numbness in her left arm and face. As per patient's daughter last night she was walking unbalanced. And today this unbalanced issues continued during the morning. The patient denies lower extremity weakness, fever sensation, nausea, vomiting, palpitations, urinary or intestinal symptoms. Allergies: Coded Allergies: crab (Verified Allergy, Unknown, 12/23/24) Home Medications Home Medications Active Tessalon Perle (Benzonatate) 100 Mg Capsule 1 Cap PO Q8H 7 Days Proair Hfa (Albuterol Sulfate) 1 Puff Inh 2 Puffs INH Q4HPRN PRN 21 Days Dexamethasone 6 Mg Tablet 1 Tab PO DAILY 5 Days Tradjenta (Linagliptin) 5 Mg Tablet 1 Tab PO DAILY 30 Days Culturelle (Lactobacillus Rhamnosus) 1 Each Capsule 10,000 Mmu PO BID Atorvastatin Calcium 20 Mg Tablet 40 Mg PO DAILY Reported Benazepril-Hctz 20-25 mg Tab (Benazepril/HCTZ) 1 Each Tablet 1 Tab PO DAILY Amlodipine Besylate 10 Mg Tablet 1 Tab PO DAILY Past Medical History Past Medical History Type 2 diabetes mellitus. Taking metformin 500 mg two tablets daily. Dyslipidemia. Taking atorvastatin 40 mg daily. Hypertension. Taking amlodipine 10 mg daily. Left ear hearing loss. GERD taking famotidine 20 mg daily. Past Surgical History Surgical History Comment Kidney stones removal more than 10 years ago. Family History Family History: Patient reports no known family medical history. Past Social History Smoking: Non-Smoker Alcohol Use: None Drug Use: None Lives with: Other (The patient lives with her two sons.) Lives In: Home Occupation: disabled ROS All Other Systems: Reviewed and Negative Constitutional: Reports: see HPI Eyes: Denies: no symptoms reported, see HPI, pain, discharge, blurred vision, double vision, itching, photophobia, redness, tearing, other ENT: Denies: no symptoms reported, see HPI, ear pain, ear bleeding, ear discharge, hearing loss, ear ringing, nose pain, nose bleeding, nose congestion, nose discharge, throat pain, throat swelling, voice change, mouth pain, mouth bleeding, mouth swelling, other Respiratory: Denies: no symptoms reported, see HPI, cough, orthopnea, shortness of breath, SOB with exertion, SOB at rest, stridor, wheezing, hemoptysis, pain with breathing, other Cardiovascular: Denies: no symptoms reported, see HPI, chest pain, left arm pain, diaphoresis, lightheadedness, syncope, edema, palpitations, irregular heart rate, other Gastrointestinal: Reports: diarrhea (The patient experienced one episode of diarrhea two days ago. She thinks it was put poisoning. One isolated episode. Normal bowel movement yesterday.) Genitourinary: Denies: no symptoms reported, see HPI, burning, discharge, dysuria, frequency, flank pain, hematuria, incontinence, pain, decreased urine output, urgency, other Female Genitalia: Denies: no reported symptoms, see HPI, vaginal discharge, vaginal pain, pelvic pain, abnormal bleeding, dyspareunia, , other Neurological: Reports: see HPI Musculoskeletal: Reports: see HPI Integumentary: Denies: no symptoms reported, see HPI, rash, itching, lesions, lumps, bruise(s), wound(s), laceration(s), dryness, change in color, other Allergic/Immunologic: Denies: no symptoms reported, see HPI, hives, itching, frequent infections, difficulty healing, other Hematologic/Lymphatic: Denies: no symptoms reported, see HPI, anemia, blood clots, easy bleeding, easy bruising, swollen glands, other Endocrine: Denies: no symptoms reported, see HPI, excessive sweating, flushing, intolerance to cold, intolerance to heat, increased hunger, increased thrist, increased urine, unexplained weight gain, unexplained weight loss, other Psychiatric: Denies: no symptoms reported, see HPI, depression, anxiety, sleeplessness, hopeless, suicidal, hallucinations, other Exam Vitals: Vital Signs Date Time Temp Pulse Resp B/P (MAP) Pulse Ox O2 Delivery O2 Flow Rate FiO2 12/23/24 17:00 65 14 174/90 97 12/23/24 15:29 97.6 Physical exam: General: Awake, alert, oriented. No acute distress. Well-developed, hydrated and well-built nourished. No anemia, Jaundice or clubbing. HEENT: Conjunctive are pink, sclerae clear, no icterus, pupil is equal in both sides, reactive to light, no ear discharge, no pharyngeal erythema or an edema. Neck: Supple, no adenopathy, thyromegaly. Trachea is midline. No JVD. Chest: Respiratory: Vesicular breath sounds. No ronchi, crepitus or wheezing. Resonance is normal upon percussion of all lung vang. Cardiovascular: S1-S2 regular sinus rhythm and, regular rate, no gallops, no rubs, no murmurs Abdomen: No visible distention, Bowel sounds present on auscultation, on palpation: soft, nontender, no guarding, no rigidity. Extremities: No obvious deformities, no pitting edema bilaterally, capillary refill intact, peripheral pulsations are intact on both sides Neurologic: Mental status: alert and conscious, oriented to place, person and time, preserved memory, normal speech. Cranial nerves I-XII: Normal. except cranial nerve 7, left homicidal dropping and decreased sensation. Motor system: Preserved power, coordination, no evidenced involuntary movements, left arm strength 3/5, right arm strength 4/5, lower extremities strength 5/5. Sensory system: Decreased sensation for pain and temperature in the left upper extremity. 2+ deep tendon reflexes in biceps, triceps, quadriceps. Negative Babinski. Cerebellar: No nystagmus, dysdiadochokinesia, normal dswpbv-rg-gcjt testing. Skin: Warm and dry. Diagnostic Data Last Recorded Lab Results: 12/23/24 1541 12/23/24 1541 Diagnostic Data: Laboratory Tests Test 12/23/24 15:41 Prothrombin Time 10.9 SECONDS (9.0-12.0) INR International Normalized Ratio 1.1 INR Activated Partial Thromboplast Time 33 SECONDS (22-32) H Coagulation Comments Advance Care Planning Advanced Care plannin - 30 Minutes (I spent a total of 17 minutes on reviewing various resuscitative measures/ACP with the patient at the time of admission. The patient has decided on a full code status.) Additional Plan Assessment and plan: 69-year-old female patient presented to the hospital with chief complaint of left facial droopiness and left arm weakness. Possible acute ischemic stroke A: The patient presented to the hospital with left facial droopiness, left arm weakness. On physical exam diminished strength and sensation in the left upper extremity. Neurology was consulted who recommended CTA of the head and neck, CT scan of the head. Head CTA: 50% stenosis of the origins of the right MCA M2 branches. No other significant stenosis about the lkalsa-av-Ryeqpn. No aneurysmal dilation about the kmsdkl-ee-Xtxkwi. 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 No significant stenosis of the bilateral cervical carotid arteries or vertebral arteries. Empty sella. Pulmonary arterial hypertension. Multiple dental caries. Recommend outpatient dental consultation. Mild paranasal sinus disease. Cervical degenerative disc disease with significant neural foraminal stenosis bilaterally at C4-C5 and C5-C6, fngp-bp-ywizfyvt spinal canal stenosis at every disc level C4-C7. Recommend follow-up outpatient noncontrast MRI of the cervical spine for better characterization, especially the patient complains of upper extremity radicular symptoms. Head CT scan showing chronic ischemic changes without evidence of acute intracranial process. Plan: MRI of the head. Aspirin 325 mg one time dose now. Aspirin 81 mg daily. Atorvastatin 80 mg daily. Follow-up lipid panel. Follow-up hemoglobin A1c. Follow-up echocardiogram. Hypertension: A: The patient does have history of hypertension. Taking amlodipine 10 mg at home. Plan: Currently on permissive hypertension. Labetalol if SBP more than 220 mmHg or DBP more than 120 mmHg is evidenced. Type 2 diabetes mellitus. Current glucose levels 243. Plan: Hyperglycemia/hypoglycemia protocol in place. Follow-up hemoglobin A1c. Medium dose short-acting insulin on place. Dyslipidemia: Follow-up lipid panel. Plan: Atorvastatin 80 mg daily. Code status: Full code DVT prophylaxis: SCDs Analgesia/sedation: Morphine Line/tube: PIV GI prophylaxis: Famotidine 20 mg daily. Nutrition: NPO after swallow evaluation. PT: Yes Prognosis: Guarded Disposition: The patient will be admitted to ortho/neuro floor. Nigel Griffin Internal Medicine Resident [place] PATIENT IS SEEN AND EXAMINED IN THE ER BED EIGHT PATIENT'S DAUGHTERS AT THE BEDSIDE WHO REQUEST TO STAY WITH HER MOM BECAUSE OF THE LANGUAGE BARRIER WE WILL PASS THE MESSAGE ON TO THE NURSING ELECTRICAL TECHNICIAN INSTRUCTOR IF THIS CAN BE ARRANGED. Date of Service: Dec 23, 2024 Billing Provider: YISEL LAIRD MD Common Visit Codes: [id number] INP/OBS CARE (HIGH) NIGEL SANCHEZ, RES Dec 23, 2024 17:50 YISEL LAIRD MD Dec 23, 2024 19:23
[2024-12-23] MEDS ORDERED: labetalol 20mg/4ml (5mg/ml) syringe IV PRN (18:05)
[2024-12-23] MEDS ORDERED: DEXTROSE 15 GM of carb/4 tabs (each vial/BOTTLE has 4 tablets) PO PRN ×2 (18:10)
[2024-12-23] MEDS ORDERED: glucagon, human recombinant 1mg kit SUBCUT PRN (18:10)
[2024-12-23] MEDS ORDERED: dextrose 50%-water 50ml dispensing syringe IV PRN ×2 (18:10)
[2024-12-23] MEDS: normal saline 1000ml 1,000 ML IV SCH (18:26)
[2024-12-23] MEDS: aspirin 325mg tablet, delayed-release (Ecotrin) PO ONE (19:06)
[2024-12-23] MEDS: K and/or MAG REPLACEMENT MC SCH (20:00)
[2024-12-23] MEDS: docusate sod 100mg capsule PO SCH (20:00)
[2024-12-23 20:20] VITALS: BP 191/82; PULSE 74; RESP 16; TEMP 98; O2SAT 96
[2024-12-23] MEDS ORDERED: METF-900 PO (20:43)
[2024-12-23] MEDS ORDERED: EMPA25TA PO (20:44)
[2024-12-23] MEDS: INSULIN LISPRO 100 UNIT/ML INSULN.PEN MULTI-DOSE SQ SCH (21:00)
[2024-12-24] VITALS (11 sets, daily range): BP systolic 160–212; BP diastolic 87–128; PULSE 78–127; RESP 14–20; TEMP 96.7–99.6; O2SAT 94–97
[2024-12-24 05:48] LABS: CHOL/HDL RATIO 4.7 (0.00-4.99); CREATININE 0.65 MG/DL (0.40-0.90); LDL CHOLESTEROL 135 MG/DL (50-100); TOTAL CARBON DIOXIDE 26.7 MMOL/L (24-32); eCRCL 51 ML/MIN; eGFR 90 ML/MIN
[2024-12-24 06:00] LABS: MEAN PLATELET VOLUME 8.9 FL (7.4-10.4); RED CELL DISTRIBUTION WIDTH 15.5 % (11.5-14.5)
--- NOTE | 2024-12-24 14:04 | PROGRESS NOTE- Residence ---
Progress Note - Resident Providers to CC Resident Creating Document: KIRSTIE SANCHEZBecky COTTONIS, RES ~ Antibiotic Timeout Antibiotic Ordered?: No Subjective The patient has been evaluated at the bedside. The patient reports that the symptoms in her left upper extremity completely resolved today. Still states some numbness in the level of the left side of the face. No overnight events. Objective Vital Signs Date Time Temp Pulse Resp B/P (MAP) Pulse Ox O2 Delivery O2 Flow Rate FiO2 12/24/24 12:00 97.8 110 18 189/104 (132) 94 Room Air 0.0 Physical exam: General: Awake, alert, oriented. No acute distress. Well-developed, hydrated and well-built nourished. No anemia, Jaundice or clubbing. HEENT: Conjunctive are pink, sclerae clear, no icterus, pupil is equal in both sides, reactive to light, no ear discharge, no pharyngeal erythema or an edema. Neck: Supple, no adenopathy, thyromegaly. Trachea is midline. No JVD. Chest: Respiratory: Vesicular breath sounds. No ronchi, crepitus or wheezing. Resonance is normal upon percussion of all lung vang. Cardiovascular: S1-S2 regular sinus rhythm and, regular rate, no gallops, no rubs, no murmurs Abdomen: No visible distention, Bowel sounds present on auscultation, on palpation: soft, nontender, no guarding, no rigidity. Extremities: No obvious deformities, no pitting edema bilaterally, capillary refill intact, peripheral pulsations are intact on both sides Neurologic: Mental status: alert and conscious, oriented to place, person and time, preserved memory, normal speech. Cranial nerves I-XII: Normal. except cranial nerve 7, left buccal commissure dropping when smile and decreased sensation. Motor system: Preserved power, coordination, no evidenced involuntary movements, left arm strength 5/5, right arm strength 5/5, lower extremities strength 5/5. Sensory system: Preserved sensation for pain, temperature and vibration. 2+ deep tendon reflexes in biceps, triceps, quadriceps. Negative Babinski. Cerebellar: No nystagmus, dysdiadochokinesia, normal peeoxz-hb-qjqs testing. Skin: Warm and dry. Result Diagram: 12/24/24 0434 12/24/24 0434 Coagulation Studies Laboratory Tests Test 12/23/24 15:41 Prothrombin Time 10.9 SECONDS (9.0-12.0) INR International Normalized Ratio 1.1 INR Activated Partial Thromboplast Time 33 SECONDS (22-32) H Coagulation Comments Assessment Assessment 69-year-old female patient presented to the hospital with chief complaint of left facial droopiness and left arm weakness. Plan Plan Possible acute ischemic stroke A: The patient presented to the hospital with left facial droopiness, left arm weakness. On physical exam diminished strength and sensation in the left upper extremity. Neurology was consulted who recommended CTA of the head and neck, CT scan of the head. Head CTA: 50% stenosis of the origins of the right MCA M2 branches. No other significant stenosis about the iywllx-om-Zldzpc. No aneurysmal dilation about the vxnvlw-tp-Zwalae. origin of the left HOURLY SHIFT, which is a normal developmental vascular variant. No significant stenosis of the bilateral cervical carotid arteries or vertebral arteries. Empty sella. Pulmonary arterial hypertension. Multiple dental caries. Recommend outpatient dental consultation. Mild paranasal sinus disease. Cervical degenerative disc disease with significant neural foraminal stenosis bilaterally at C4-C5 and C5-C6, pitt-vf-xnpfsfuo spinal canal stenosis at every disc level C4-C7. Recommend follow-up outpatient noncontrast MRI of the cervical spine for better characterization, especially the patient complains of upper extremity radicular symptoms. Head CT scan showing chronic ischemic changes without evidence of acute intracranial process. Lipid panel: LDL 135, the patient was on atorvastatin 40 mg daily. Hemoglobin A1c 8.2-uncontrolled diabetes mellitus. Echocardiogram: LVEF is 70-75%. Overall systolic function is normal. Normal left ventricular size and wall thickness. RVSP 34 mmHg. Plan: Pending MRI of the head. Continue Aspirin 81 mg daily. Continue Atorvastatin 80 mg daily. Acute kidney injury likely secondary to dehydration: Creatinine improved from 1.02-0.65. Vasomotor nephropathy. Plan: Continue NS at 20 mL/hour. To be discontinued tomorrow. Hypertension: A: The patient does have history of hypertension. Taking amlodipine 10 mg at home. Plan: Currently on permissive hypertension. Labetalol if SBP more than 220 mmHg or DBP more than 120 mmHg is evidenced. Type 2 diabetes mellitus-uncontrolled. Current glucose levels 243. Hemoglobin A1c: 8.2. Plan: Hyperglycemia/hypoglycemia protocol in place. Medium dose short-acting insulin on place. Dyslipidemia: Lipid panel: LDL 135, HDL 42, cholesterol 199, triglycerides 95. Plan: Continue Atorvastatin 80 mg daily. Code status: Full code DVT prophylaxis: SCDs Analgesia/sedation: Morphine Line/tube: PIV GI prophylaxis: Famotidine 20 mg daily. Nutrition: Regular diet. PT: Yes Prognosis: Guarded Disposition: Continue medical management. Pending MRI of the head. Liza Griffin Internal Medicine Resident [facility] Patient is seen and examined with resident at bedside patient's daughters at the bedside to help with translation as patient speaks mostly [place] but understands Yi but unable to respond appropriately Date of Service: Dec 24, 2024 Billing Provider: YISEL LAIRD MD Common Visit Codes: [id number] INP/OBS CARE(HIGH) LIZA SANCHEZ, RES Dec 24, 2024 14:04 YISEL LAIRD MD Dec 24, 2024 15:37
[2024-12-24] MEDS: hydrALAZINE 20mg/ml inj. IV ONE (15:51)
--- NOTE | 2024-12-24 18:37 | CARDIOLOGY REPORT ---
APPROVED REPORT EXAM: Comprehensive 2D, Doppler, and color-flow Echocardiogram with saline. Patient Location: 402 Blood Pressure: 182/87 mmHg Heart Rate: 119 bpm Indications CVA/TIA Hypertension Diabetes NO NOVELTY TWISTER TENDER NO Previous ECHO 2D Dimensions LA Diam 3.7 cm IVSd 0.7 (0.7-1.1cm) LVDd 4.4 cm PWd 0.9 (0.7-1.1cm) IVSs 1.2 (0.8-1.2cm) LVDs 2.6 (2.5-4.0cm) PWs 1.6 (0.8-1.2cm) LVOT Diameter 1.88 (1.8-2.4cm) LVEF(%) 72.0 (>50%) Ao Asc Diam. 3.25 cm IVC 11.35 mm FS (%) 41.0 % SV 63.6 ml CO 7.6 L/min M-Mode Dimensions Left Atrium(MM) 3.95 (2.5-4.0cm) Aortic Root 2.88 (2.2-3.7cm) Aortic Cusp Exc 1.85 (1.5-2.0cm) MV EPSS 0.4 (<0.5cm) Aortic Valve AoV Peak Rex. 156.8 cm/s AoV VTI 20.7 cm AO Peak GR. 9.8 mmHg AO Mean GR. 5 mmHg LVOT VTI 21.37 cm LVOT Peak Rex. 116.5 cm/s MARC(VTI)/BSA 2.86 cm2/m2 MARC (VTI) 2.86 cm2 AV DI 1.03 % TDI Lateral E' P. V 11.77 cm/s Tricuspid Valve TR P. Velocity 244 cm/s RAP ESTIMATE 10 mmHg TR Peak Gr. 24 mmHg RVSP 34 mmHg LEFT VENTRICLE Normal LV size and wall thickness. Overall systolic function is normal. LVEF is 70-75%. RIGHT VENTRICLE RV is normal size and function. Elevated right heart pressures with an RVSP of 34 mmHg. ATRIA The left atrium size is normal. Saline study was performed with 3 IV injections of 10 ccs of agitated normal saline at rest, with cough, and with valsalva. Negative saline study for right to left flow. AORTIC VALVE Trileaflet AV appears mildly sclerotic without stenosis. Trace insufficiency. MITRAL VALVE Mild mitral annular calcification without stenosis. Mild regurgitation. TRICUSPID VALVE The tricuspid valve is normal in structure with trace regurgitation. PULMONIC VALVE Pulmonic valve is grossly normal in structure with physiologic insufficiency. GREAT VESSELS The aortic root is normal in size. The ascending aorta is normal in size. The IVC is normal in size and collapses >50% with inspiration. PERICARDIUM Normal pericardium. No effusion. Anterior epicardial fat pad is present. Other Information Study Quality: Adequate Conclusion Normal LV size and wall thickness. Overall systolic function is normal. LVEF is 70-75%. RV is normal size and function. Elevated right heart pressures with an RVSP of 34 mmHg. The left atrium size is normal. Saline study was performed with 3 IV injections of 10 ccs of agitated normal saline at rest, with cough, and with valsalva. Negative saline study for right to left flow. Trileaflet AV appears mildly sclerotic without stenosis. Trace insufficiency. Mild mitral annular calcification without stenosis. Mild regurgitation. The tricuspid valve is normal in structure with trace regurgitation. Normal pericardium. No effusion. Anterior epicardial fat pad is present.
[2024-12-24] MEDS: METFORMIN 500 MG PO SCH (20:00)
--- NOTE | 2024-12-24 20:13 | RADIOLOGY REPORT ---
EXAM: MR MRI HEAD INDICATION: Left facial droopiness, left arm weakness. TECHNIQUE: Multiplanar, multisequence imaging of the brain without contrast. COMPARISON: CT CTA NECK/HEAD on DOS: 12/23/24 FINDINGS: [PARENCHYMA]: No acute infarct or hemorrhage. No mass effect or herniation. No abnormal susceptibility weighted artifact. There are mild periventricular and centrum semiovale T2/FLAIR hyperintensities, which are nonspecific but most likely represent chronic microvascular ischemic change. [VENTRICLES]: No hydrocephalus. [EXTRA-AXIAL SPACES]: No extra-axial fluid collections. [FLOW VOIDS]: The flow voids are intact. [EXTRA-CRANIAL STRUCTURES]: The bony structures are intact. Visualized portions of the paranasal sinuses and mastoid air cells are essentially clear. IMPRESSION: 1. No MR evidence of an acute intracranial abnormality.
[2024-12-24] MEDS ORDERED: hydrALAZINE 20mg/ml inj. IV PRN (21:25)
[2024-12-25] VITALS (10 sets, daily range): BP systolic 119–184; BP diastolic 70–97; PULSE 80–130; RESP 14–17; TEMP 97–99.7; O2SAT 93–96
[2024-12-25] MEDS: insulin glargine (Lantus) pen - multi-dose SQ SCH (00:57)
[2024-12-25] MEDS: insulin glargine (Lantus) pen - multi-dose SQ ONE (00:59)
[2024-12-25 04:42] LABS: MEAN PLATELET VOLUME 8.5 FL (7.4-10.4); RED CELL DISTRIBUTION WIDTH 15.6 % (11.5-14.5)
[2024-12-25 05:05] LABS: CREATININE 0.69 MG/DL (0.40-0.90); TOTAL CARBON DIOXIDE 26.6 MMOL/L (24-32); eCRCL 48 ML/MIN; eGFR 84 ML/MIN
[2024-12-25] MEDS: EMPAGLIFLOZIN 25 MG TABLET PO SCH (07:14)
--- NOTE | 2024-12-25 09:26 | ELECTROCARDIOGRAPH REPORT ---
[facility] Test Date: 2024-12-25 Test Time: 09:25:03 Pat Name: ANTONIETTA ANDERS Department: [facility] 4S Patient ID: [facility]-[id number] Room: [place] [id number] A Gender: F Web Site Admin: : [id number] Requested By: LIZA GARZA Order Number: [id number] Reading MD: Dr. BLAINE Jhaveri Measurements Intervals [place] Rate: 123 P: 41 RI: 153 QRS: 95 QRSD: 89 T: -57 QT: 352 QTc: 504 Interpretive Statements Sinus tachycardia Right axis deviation Borderline repolarization abnormality Prolonged QT interval Electronically Signed On 12-25-2024 16:51:[address] BLAINE Jhaveri Please click the below link to view image of tracing.
[2024-12-25] MEDS: potassium Cl 20 mEq SR tablet PO PRN (09:47)
--- NOTE | 2024-12-25 17:30 | PROGRESS NOTE- Residence ---
Progress Note - Resident Providers to CC Resident Creating Document: SCARLETT GARZALIZA, RES ~ Antibiotic Timeout Antibiotic Ordered?: No Subjective The patient has been evaluated at bedside. The patient reports improvement of headache, numbness and weakness. Overnight events: The patient had elevated blood pressure, MRI was negative for stroke. Objective Vital Signs Date Time Temp Pulse Resp B/P (MAP) Pulse Ox O2 Delivery O2 Flow Rate FiO2 12/25/24 16:30 97.6 89 127/70 (89) 96 Room Air 12/25/24 10:00 16 12/25/24 08:55 0.0 Physical exam: General: Awake, alert, oriented. No acute distress. Well-developed, hydrated and well-built nourished. No anemia, Jaundice or clubbing. HEENT: Conjunctive are pink, sclerae clear, no icterus, pupil is equal in both sides, reactive to light, no ear discharge, no pharyngeal erythema or an edema. Neck: Supple, no adenopathy, thyromegaly. Trachea is midline. No JVD. Chest: Respiratory: Vesicular breath sounds. No ronchi, crepitus or wheezing. Resonance is normal upon percussion of all lung vang. Cardiovascular: S1-S2 regular sinus rhythm and, regular rate, no gallops, no rubs, no murmurs Abdomen: No visible distention, Bowel sounds present on auscultation, on palpation: soft, nontender, no guarding, no rigidity. Extremities: No obvious deformities, no pitting edema bilaterally, capillary refill intact, peripheral pulsations are intact on both sides Neurologic: Mental status: alert and conscious, oriented to place, person and time, preserved memory, normal speech. Cranial nerves I-XII: Normal. except cranial nerve 7, left buccal commissure dropping when smile. Motor system: Preserved power, coordination, no evidenced involuntary movements, 5/5 strength upper extremities. 5/5 strength in lower extremities. Sensory system: Preserved sensation for pain, temperature and vibration. 2+ deep tendon reflexes in biceps, triceps, quadriceps. Negative Babinski. Cerebellar: No nystagmus, dysdiadochokinesia, normal njdggp-zm-[id number] testing. Skin: Warm and dry. Result Diagram: 12/25/2440912/25/24409 Coagulation Studies Laboratory Tests Test 12/23/24 15:41 Prothrombin Time 10.9 SECONDS (9.0-12.0) INR International Normalized Ratio 1.1 INR Activated Partial Thromboplast Time 33 SECONDS (22-32) H Coagulation Comments Assessment Assessment 69-year-old female patient Brinda lopez presented to the hospital with chief complaint of left facial droopiness and left arm weakness. Plan Plan Transient ischemic attack Acute ischemic stroke-ruled out A: The patient presented to the hospital with left facial droopiness, left arm weakness. On physical exam diminished strength and sensation in the left upper extremity. Neurology was consulted who recommended CTA of the head and neck, CT scan of the head. Head CTA: 50% stenosis of the origins of the right MCA M2 branches. No other significant stenosis about the qpfdei-wi-Nlbrpa. No aneurysmal dilation about the chzxdt-wz-Fhfftb. origin of the left TURBINE INSPECTOR, which is a normal developmental vascular variant. No significant stenosis of the bilateral cervical carotid arteries or vertebral arteries. Empty sella. Pulmonary arterial hypertension. Multiple dental caries. Recommend outpatient dental consultation. Mild paranasal sinus disease. Cervical degenerative disc disease with significant neural foraminal stenosis bilaterally at C4-C5 and C5-C6, hrnh-no-lyysltuq spinal canal stenosis at every disc level C4-C7. Recommend follow-up outpatient noncontrast MRI of the cervical spine for better characterization, especially the patient complains of upper extremity radicular symptoms. Head CT scan showing chronic ischemic changes without evidence of acute intracranial process. Lipid panel: LDL 135, the patient was on atorvastatin 40 mg daily. Hemoglobin A1c 8.2-uncontrolled diabetes mellitus. Echocardiogram: LVEF is 70-75%. Overall systolic function is normal. Normal left ventricular size and wall thickness. RVSP 34 mmHg. MRI of the head: No evidence of acute intracranial abnormality. Plan: Continue Aspirin 81 mg daily. Continue Atorvastatin 80 mg daily. Hypertensive emergency: POA: A: The patient does have history of hypertension. Taking amlodipine 10 mg at home. Plan: Continue amlodipine 10 mg daily. Lisinopril 20 mg daily. Hydrochlorothiazide 25 mg daily. Acute kidney injury likely secondary to dehydration-improved: Creatinine improved. Vasomotor nephropathy. Plan: Continue to monitor CMP. Type 2 diabetes mellitus-uncontrolled. Current glucose levels 243. Hemoglobin A1c: 8.2. Plan: Hyperglycemia/hypoglycemia protocol in place. Insulin glargine 15 units HS. Medium dose short-acting insulin on place. Dyslipidemia: Lipid panel: LDL 135, HDL 42, cholesterol 199, triglycerides 95. Plan: Continue Atorvastatin 80 mg daily. Code status: Full code DVT prophylaxis: SCDs Analgesia/sedation: Morphine Line/tube: PIV GI prophylaxis: Famotidine 20 mg daily. Nutrition: Regular diet. PT: Yes Prognosis: Guarded Disposition: Continue medical management. The patient may need placement. Liza Garza Internal Medicine Resident [facility] Date of Service: Dec 25, 2024 Billing Provider: CYRIL DONALDSON MD Common Visit Codes: [id number] INP/OBS CARE(HIGH) LIZA SANCHEZ, RES Dec 25, 2024 17:30 CYRIL DONALDSON MD Dec 26, 2024 06:43
[2024-12-25 20:23] LABS: LEUKOCYTE ESTERASE ,URINE NEGATIVE (Neg); NITRITES, URINE NEGATIVE (Neg); OCCULT BLOOD,URINE NEGATIVE (Neg)
[2024-12-25 20:32] LABS: UA COLLECTION TYPE NON-SPECIFIED
[2024-12-25 20:34] LABS: SQUAMOUS EPITHELIAL CELL,UR FEW /LPF (FEW)
[2024-12-26 06:00] VITALS: BP 134/87; PULSE 84; RESP 17; TEMP 97.9; O2SAT 96
[2024-12-26 07:06] LABS: MEAN PLATELET VOLUME 8.7 FL (7.4-10.4); RED CELL DISTRIBUTION WIDTH 15.3 % (11.5-14.5)
[2024-12-26 07:23] LABS: CREATININE 0.81 MG/DL (0.40-0.90); TOTAL CARBON DIOXIDE 25.1 MMOL/L (24-32); eCRCL 41 ML/MIN; eGFR 70 ML/MIN
[2024-12-26 07:34] VITALS: BP 144/87; PULSE 85; O2SAT 95
[2024-12-26 08:00] VITALS: RESP 16; O2SAT 98
[2024-12-26] MEDS ORDERED: CLOP75TA34 PO (08:59)
[2024-12-26] MEDS ORDERED: EMPA25TA PO (08:59)
[2024-12-26] MEDS ORDERED: ATOR-2 PO (08:59)
[2024-12-26 09:25] VITALS: BP 143/74; PULSE 107; O2SAT 98
[2024-12-26 10:00] VITALS: BP 113/66; PULSE 83; RESP 16; TEMP 98.8; O2SAT 97
[2024-12-26 11:45] VITALS: BP_SYST 128; BP_SYST 130; BP_SYST 133; BP_DIAS 69; BP_DIAS 73; BP_DIAS 78; PULSE 80; PULSE 86; PULSE 94
[2024-12-26] MEDS ORDERED: ASPI-1265 PO (13:56)
--- NOTE | 2024-12-26 15:39 | DISCHARGE SUMMARY-Residence ---
Discharge Summary Providers to CC Resident Creating Document: LIZA SANCHEZ, RES ~ Discharge Summary Admission Diagnosis: Facial droopiness Hospital Course DATE OF ADMISSION: 12/23/2024 DATE OF DISCHARGE: 12/26/2024 Discharge Diagnosis\Comment: Transient ischemic attack Acute ischemic stroke-ruled out Hypertensive emergency: POA Acute kidney injury likely secondary to dehydration-improved Type 2 diabetes mellitus-uncontrolled Dyslipidemia Operations\Procedures: None Consultants: Neurology Complications: None Condition on DC: Stable New Medications: Aspirin (Aspirin) 81 Mg Tab.chew 1 TAB PO DAILY for 30 Days, #30 TAB.CHEW Atorvastatin Calcium (Atorvastatin Calcium) 80 Mg Tablet 1 TAB PO DAILY for 30 Days, #30 TAB 0 Refills Clopidogrel Bisulfate (Clopidogrel) 75 Mg Tablet 75 MG PO DAILY for 21 Days, #21 TAB Empagliflozin (Jardiance) 25 Mg Tablet 1 TAB PO DAILY for 30 Days, #30 TAB 0 Refills Continued Medications: Amlodipine Besylate (Amlodipine Besylate) 10 Mg Tablet 1 TAB PO DAILY Benazepril/Hydrochlorothiazide (Benazepril-Hctz 20-25 mg Tab) 1 Each Tablet 1 TAB PO DAILY Linagliptin (Tradjenta) 5 Mg Tablet 1 TAB PO DAILY for 30 Days, #30 TAB Metformin Hcl* (Metformin ER*) 500 Mg Tab.sr.24h 1 TAB PO Q12H for 30 Days, #60 TAB Discontinued Medications: Atorvastatin Calcium (Atorvastatin Calcium) 20 Mg Tablet 40 MG PO DAILY, #60 TAB Empagliflozin (Jardiance) 25 Mg Tablet 1 TAB PO DAILY for 30 Days, #30 TAB 0 Refills Discharge Summary: HPI: 69-year-old female patient presented to the hospital with chief complaint of left facial droopiness and left arm weakness. The patient is [place] speaking. The patient states that yesterday approximately 3:00 p.m. she experienced a severe headache scaled 10/10 in intensity, located behind her eyes, without radiation, described as a pressure type. As per patient this is the 1st time that she experienced symptoms like this. She was visiting her brother when these symptoms started. The patient took two tablets of Tylenol 500 mg in the morning and two tablets in the afternoon which improved with the pain but she reports that currently she is still having weakness of the left upper extremity and associated numbness in her left arm and face. As per patient's daughter last night she was walking unbalanced. And today this unbalanced issues continued during the morning. The patient denies lower extremity weakness, fever sensation, nausea, vomiting, palpitations, urinary or intestinal symptoms. Hospital course: 69-year-old female patient admitted with left facial droopiness and left arm weakness. The patient was admitted with suspicion of acute ischemic stroke, head MRI was obtained with ruled out acute ischemic stroke. Upon the following day after admission patient's symptoms improved. After ruled out acute ischemic stroke blood pressure was better controlled with blood pressure medications. Initially the patient was started on hypertensive emergency. When the symptoms resolved the patient was able to mentioned that she was noncompliant with her medication, trying to reduce the doses by her own. At this time the patient states that she is aware that probably that is the cause of what is happening now, endorses that she is going to be compliant with the medication. Due to the differential of carotid artery dissection head and neck CT scan was obtained with negative result for the same. Also because of the symptom of severe headache experienced by the patient suspicion for subarachnoid hemorrhage was considered which was ruled out with CT scan of the head. Physical therapy evaluated the patient who cleared the patient for home. The patient remained hemodynamically stable, blood pressure was better controlled. The patient will be discharged home. Discharge course: The patient remained hemodynamically stable. The patient will be discharged with the following instructions: Come back to the ER or call 911 if severe chest pain, shortness of breath, dizziness, decreased strength is evidenced. Take atorvastatin 1 tablet of 80 mg daily. Take aspirin one tablet of 81 mg daily. Take clopidogrel 1 tablet of 75 mg daily for 21 days. Empagliflozin 1 tablet of 25 mg daily. Continue your home medications amlodipine 10 md daily. Benazepril-HTZ 1 tablet daily. Linaliptin 1 tablet of 5 mg daily. Metformin 1 tablet of 500 mg every 12 hours. Follow up with your primary care physician within 2 weeks. Mention him that you will need to monitor your HBA1C because it was not well controlled when you arrived to the hospital. Please strong recommendations for compliance with medications at home. Physical exam: General: Awake, alert, oriented. No acute distress. Well-developed, hydrated and well-built nourished. No anemia, Jaundice or clubbing. HEENT: Conjunctive are pink, sclerae clear, no icterus, pupil is equal in both sides, reactive to light, no ear discharge, no pharyngeal erythema or an edema. Neck: Supple, no adenopathy, thyromegaly. Trachea is midline. No JVD. Chest: Respiratory: Vesicular breath sounds. No ronchi, crepitus or wheezing. Resonance is normal upon percussion of all lung vang. Cardiovascular: S1-S2 regular sinus rhythm and, regular rate, no gallops, no rubs, no murmurs Abdomen: No visible distention, Bowel sounds present on auscultation, on palpation: soft, nontender, no guarding, no rigidity. Extremities: No obvious deformities, no pitting edema bilaterally, capillary refill intact, peripheral pulsations are intact on both sides Neurologic: Mental status: alert and conscious, oriented to place, person and time, preserved memory, normal speech. Cranial nerves I-XII: Normal. except cranial nerve 7, left buccal commissure dropping when smile-improved. Motor system: Preserved power, coordination, no evidenced involuntary movements, 5/5 strength upper extremities. 5/5 strength in lower extremities. Sensory system: Preserved sensation for pain, temperature and vibration. 2+ deep tendon reflexes in biceps, triceps, quadriceps. Negative Babinski. Cerebellar: No nystagmus, dysdiadochokinesia, normal fcpogk-qg-yqnm testing. Skin: Warm and dry. Vital Signs Date Time Temp Pulse Resp B/P (MAP) Pulse Ox O2 Delivery O2 Flow Rate FiO2 12/26/24 11:45 80 128/73 (91) 94 130/69 (89) 86 133/78 (96) 12/26/24 10:00 98.8 16 97 Room Air 12/26/24 08:00 0.0 Laboratory Tests Test 12/24/24 17:02 12/24/24 20:33 12/25/24 00:55 12/25/24 04:10 Glucometer 215 mg/dl 252 mg/dl 184 mg/dl White Blood Count 6.0 X10'3 Red Blood Count 5.81 X10'6 Hemoglobin 15.7 g/dl Hematocrit 47.5 % Mean Corpuscular Volume 81.7 FL Mean Corpuscular Hemoglobin 27.1 PG Mean Corpuscular Hemoglobin Concent 33.1 g/dL Red Cell Distribution Width 15.6 % Platelet Count 227 X10'3 Mean Platelet Volume 8.5 FL Neutrophils (%) (Auto) 59.2 % Lymphocytes (%) (Auto) 30.9 % Monocytes (%) (Auto) 8.9 % Eosinophils (%) (Auto) 0.6 % Basophils (%) (Auto) 0.4 % Neutrophils # (Auto) 3.6 X10'3 Lymphocytes # (Auto) 1.9 X10'3 Monocytes # (Auto) 0.5 X10'3 Eosinophils # (Auto) 0.0 X10'3 Basophils # (Auto) 0.0 X10'3 CBC Comment Sodium Level 142 MMOL/L Potassium Level 3.4 MMOL/L Chloride Level 104 MMOL/L Carbon Dioxide Level 26.6 MMOL/L Anion Gap 11 Blood Urea Nitrogen 15 MG/DL Creatinine 0.69 MG/DL Estimated GFR/1.73 m2 84 ML/MIN BUN/Creatinine Ratio 21.7 Glucose Level 182 MG/DL Calcium Level 8.8 MG/DL Magnesium Level 1.9 MG/DL Total Bilirubin 0.9 MG/DL Aspartate Amino Transf (AST/SGOT) 20 U/L Alanine Aminotransferase (ALT/SGPT) 18 U/L Alkaline Phosphatase 105 IU/L Total Protein 7.3 G/DL Albumin 3.4 G/DL Globulin 3.9 G/DL Albumin/Globulin Ratio 0.9 Chemistry Comments Test 12/25/24 06:44 12/25/24 09:16 12/25/24 11:55 12/25/24 17:38 Glucometer 193 mg/dl 177 mg/dl 158 mg/dl 170 mg/dl Test 12/25/24 19:43 12/25/24 21:01 12/26/24 05:49 12/26/24 07:28 Urine Specimen Description Non-specified Urine Color Yellow Urine Clarity Clear Urine pH 5.5 Urine Specific [place] 1.020 Urine Protein Negative mg/dl Urine Glucose (UA) >=1000 mg/dl Urine Ketones Negative mg/dl Urine Occult Blood Negative Urine Nitrite Negative Urine Bilirubin Negative Urine Urobilinogen 0.2 E.U/dL Urine Leukocyte Esterase Negative Urine RBC 0-2 /HPF Urine WBC 0-4 /HPF Urine Squamous Epithelial Cells Few /LPF Urine Bacteria 1+ /HPF Volume Urine Centrifuged 10 ml Urine Comment Glucometer 184 mg/dl 134 mg/dl White Blood Count 5.9 X10'3 Red Blood Count 5.68 X10'6 Hemoglobin 15.6 g/dl Hematocrit 46.3 % Mean Corpuscular Volume 81.5 FL Mean Corpuscular Hemoglobin 27.4 PG Mean Corpuscular Hemoglobin Concent 33.6 g/dL Red Cell Distribution Width 15.3 % Platelet Count 235 X10'3 Mean Platelet Volume 8.7 FL Neutrophils (%) (Auto) 44.7 % Lymphocytes (%) (Auto) 46.0 % Monocytes (%) (Auto) 6.7 % Eosinophils (%) (Auto) 2.1 % Basophils (%) (Auto) 0.5 % Neutrophils # (Auto) 2.6 X10'3 Lymphocytes # (Auto) 2.7 X10'3 Monocytes # (Auto) 0.4 X10'3 Eosinophils # (Auto) 0.1 X10'3 Basophils # (Auto) 0.0 X10'3 CBC Comment Sodium Level 140 MMOL/L Potassium Level 3.8 MMOL/L Chloride Level 106 MMOL/L Carbon Dioxide Level 25.1 MMOL/L Anion Gap 9 Blood Urea Nitrogen 26 MG/DL Creatinine 0.81 MG/DL Estimated GFR/1.73 m2 70 ML/MIN BUN/Creatinine Ratio 32.1 Glucose Level 126 MG/DL Calcium Level 9.0 MG/DL Magnesium Level 2.3 MG/DL Total Bilirubin 0.8 MG/DL Aspartate Amino Transf (AST/SGOT) 22 U/L Alanine Aminotransferase (ALT/SGPT) 26 U/L Alkaline Phosphatase 102 IU/L Total Protein 7.6 G/DL Albumin 3.5 G/DL Globulin 4.1 G/DL Albumin/Globulin Ratio 0.9 Chemistry Comments Test 12/26/24 12:01 Glucometer 172 mg/dl Imaging: Chest x-ray: No MR evidence of an acute intracranial abnormality. Head CT scan: Chronic ischemic changes without evidence of acute intracranial process. Mild paranasal sinus disease. Head/neck CTA: 50% stenosis of the origins of the right MCA M2 branches. No other significant stenosis about the ucaqgf-hz-Khsvke. No aneurysmal dilatation about the [place]. origin of the left HALAL BUTCHER, which is a normal developmental vascular variant. No significant stenosis of the bilateral cervical carotid arteries or vertebral arteries. Empty sella. Pulmonary arterial hypertension. Multiple dental caries. Recommend outpatient dental consultation. Mild paranasal sinus disease. Cervical degenerative disc disease with significant neural foraminal stenosis bilaterally at C4-C5 and C5-C6, dohf-ps-lgyyhirg spinal canal stenosis at every disc level C4-C7. Recommend follow-up outpatient noncontrast MRI of the cervical spine for better characterization, especially the patient complains of upper extremity radicular symptoms. Echocardiogram: Normal LV size and wall thickness. Overall systolic function is normal. LVEF is 70-75%. RV is normal size and function. Elevated right heart pressures with an RVSP of 34 mmHg. The left atrium size is normal. Saline study was performed with 3 IV injections of 10 ccs of agitated normal saline at rest, with cough, and with valsalva. Negative saline study for right to left flow. Trileaflet AV appears mildly sclerotic without stenosis. Trace insufficiency. Mild mitral annular calcification without stenosis. Mild regurgitation. The tricuspid valve is normal in structure with trace regurgitation. Normal pericardium. No effusion. Anterior epicardial fat pad is present. Head MRI: No MR evidence of an acute intracranial abnormality. *Problems/Diagnosis: (1) TIA (transient ischemic attack) Status: Acute (2) Hypertensive emergency Status: Acute (3) GAUDENCIO (acute kidney injury) Status: Acute Total Time Spent on D/C: > 30 Minutes Date of Service: Dec 26, 2024 Billing Provider: CYRIL DONALDSON MD Common Visit Codes: 39374-CKR/OBS DISCH DAY >30min LIZA SANCHEZ, RES Dec 26, 2024 15:34 CYRIL DONALDSON MD Dec 27, 2024 08:12
== END 2024-12-26 13:45 | disposition home health service (06) | DRG 304 ==
LOC: ER 15:19 → ED HOLD 17:10 → ORTHO 4S 20:21
PROVIDERS: ADMIT Internal Medicine; ATTEND Internal Medicine
PROC: B3251ZZ Computerized Tomography (CT Scan) of Bilateral Common Carotid Arteries using Low Osmolar Contrast (ICD-10-PCS; principal; 2024-12-23)
PROC: B32G1ZZ Computerized Tomography (CT Scan) of Bilateral Vertebral Arteries using Low Osmolar Contrast (ICD-10-PCS; 2024-12-23)
PROC: B32R1ZZ Computerized Tomography (CT Scan) of Intracranial Arteries using Low Osmolar Contrast (ICD-10-PCS; 2024-12-23)
PROC: B3281ZZ Computerized Tomography (CT Scan) of Bilateral Internal Carotid Arteries using Low Osmolar Contrast (ICD-10-PCS; 2024-12-23)
DX: I16.1 Hypertensive emergency (principal); N17.0 Acute kidney failure with tubular necrosis; G45.9 Transient cerebral ischemic attack, unspecified; E78.00 Pure hypercholesterolemia, unspecified; I10 Essential (primary) hypertension; E11.9 Type 2 diabetes mellitus without complications; Z91.018 Allergy to other foods; Z79.84 Long term (current) use of oral hypoglycemic drugs; Z79.899 Other long term (current) drug therapy; E86.0 Dehydration
CPT/HCPCS: 36415; 70450; 70496; 70498; 70551; 71045; 80048; 80053; 80061; 81001; 82948; 83036; 83735; 85025; 85610; 85730; 87081; 93005; 93306; 97116; 97161; 97530; 99285; G0378; J0360; J1815; J7030; Q9967